=== PATIENT | male | born 1960 | race Caucasian/White ===

== ENCOUNTER 2016-10-11 14:00 | Inpatient (IN) | payer MEDICARE, MEDICAID ==
[~2016-10-11] VITALS: Ht 180.3 cm; Wt 95.7 kg
--- NOTE | ~2016-10-11 | CON ---
[place], [place] REPORT OF CONSULTATION NAME: JUAN PABLO VINES SR [facility] #: [id number] UNIT #: [id number] ROOM: 401 DOCTOR: DB DURÁN MD BIRTHDATE: [birth year] DOS: 10/12/2016 REASON FOR CONSULTATION: Assess the patient for shortness of breath. HISTORY OF PRESENT ILLNESS: This is a 56-year-old white male who has been known with past history of bronchial asthma and treated ____ for this patient. The patient stated he has been noted chronic shortness of breath for about 18 months. The symptoms were described to have worsened gradually in the last 4 days requiring assessment in the hospital. The patient denies symptoms of chest pain, abdominal pain. He was also noted with uncontrolled hyperglycemia. The patient on admission as well with known history of type 2 diabetes mellitus. The patient denies any symptoms of hemoptysis. He does have very mild cough without any sputum expectoration. Denies any wheezing at this time, but noted previously wheezing. Some tightness in the chest was noted with symptoms of chest pain. REVIEW OF SYSTEMS: CONSTITUTIONAL SYMPTOMS: Fatigue and tiredness were described with symptoms of fever or chills. EYES: Denies any burning, redness, or tenderness. NECK, EARS, NOSE, THROAT SYMPTOMS: No sore throat, hoarseness, otalgia, postnasal drainage or epistaxis. CARDIOVASCULAR: Denies anginal pain, edema, or pain of the lower extremities. GASTROINTESTINAL SYSTEM: Dysphagia, nausea, vomiting, diarrhea, abdominal pain, hematemesis, melena, hematochezia. SKIN: Denies lesions or rashes. MUSCULOSKELETAL SYSTEM: Denies acute joint pain, redness, or tenderness. CENTRAL NERVOUS SYSTEM: Denies dizziness, headache, diplopia, syncopal episodes or seizures. Remaining systems were noted. The patient and were noted negative. PAST MEDICAL HISTORY: As described; 1. History of essential hypertension. 2. Anxiety disorder. 3. Major depression. The patient was noted to have recurrent, moderate. 4. History of recurrent nephrolithiasis. 5. Gastroesophageal reflux. 6. Crohn's disease. 7. Hypothyroidism. 8. Type 2 diabetes mellitus. 9. History of benign prostatic hyperplasia. The patient's urinary retention. SOCIAL HISTORY: The patient stated that he is , lives at home, noted nonsmoker lifetime. Denies any history of alcohol or any illicit drugs use. The patient stated that he is currently noted on disability secondary to bleeding in his kidneys. PAST SURGICAL HISTORY: Noted as none major. FAMILY HISTORY: The patient's father at the age of 72 years which showed complication of metastatic prostate cancer. Mother is living, 82 years old with [place], [place] REPORT OF CONSULTATION NAME: JUAN PABLO VINES SR UNIT #: [id number] ROOM: 401 DOCTOR: SULLY RODRIGUEZ MD,DB BIRTHDATE: [birth year] known history of diabetes and congestive heart failure. HOME MEDICATIONS: Which were listed in the medication reconciliation, but the nursing staff at the time of admission, the patient were noted as use of Vicodin, Abilify, Cymbalta, Synthroid, metformin, Seroquel, Flomax, and Victoza. DRUG ALLERGIES: The patient was noted as allergy: 1. IODINE. 2. PENICILLIN. PHYSICAL EXAMINATION: GENERAL: A 56-year-old male who has been currently noted to be awake and alert without any acute distress. VITAL SIGNS: Height of 5 feet 11 inches, weight of 113 pounds, BMI normal temperature. The patient 99 degree Fahrenheit, respiration 18-22, heart rate 105-73, blood pressure 135/96-103/65. Pulse oxygen saturation, the patient noted on room air 91% saturation to 98% saturation, previously noted. HEENT: Chronic obesity. Head was atraumatic. Eyes nonicterus. NECK: Supple. CARDIOVASCULAR SYSTEM: S1, S2 audible. LUNGS: The patient was noted clear of any wheezing or crackles at the present time. ABDOMEN: Soft and nontender, bowel sounds present. CENTRAL NERVOUS SYSTEM: The patient was noted without any focal deficit. Cranial nerves 2 and 12 were noted intact. LABORATORY DATA: On this patient, PT and PTT for the patient was essentially noted as normal. CBC of the patient noted as normal. CBC patient on admission on 10/11/2016. Chest x-ray, 1 view, the patient 10/11/2016 patient was noted with mild cardiomegaly; otherwise normal. Lactic acid was noted as 2.2 yesterday and this morning. CMP of the patient yesterday on admission, glucose 339. Sodium 134. Remaining CMP was normal. Ketone for this patient in the urine were noted as negative. ESR was 14. Lactic acid this morning was normal. CBC of the patient this morning was noted as normal. Chest x-ray rather one view the patient was noted without any acute pulmonary infiltration, mild cardiomegaly was present. The V/Q scan the patient that was completed yesterday, the patient noted normal. IMPRESSION: Shortness of breath at this time. Etiology remains unclear, may be related to the mild lactic acidosis noted on admission, the patient of unclear etiology for this patient. There were no signs of any pneumonia, bronchospasm for this patient, the lungs were noted completely clear at this time; however, the patient does complain of wheezing at home at times and has been also noted history of chronic shortness of breath may be related to underlying obesity of this patient as well or any occult pulmonary disease. The chest x-ray of the patient were noted completely free of any acute infiltration. The proBNP for the patient was also done for this patient on admission and that was noted essentially normal, ruling out any cardiac etiology. [place], [place] REPORT OF CONSULTATION NAME: MOHINDER MCCRAYJUAN PABLO L UNIT #: [id number] ROOM: 401 DOCTOR: DB DURÁN MD BIRTHDATE: [birth year] PLAN OF MANAGEMENT: At this time, the patient would not be considered of any additional treatment will be monitored closely. I will order a chest x-ray PA and lateral to be repeated again for this patient if any abnormality suspected. CT scan of the chest will be ordered for this patient after that. In the meantime, continue other supportive plan of therapy management and care. Usual medical management, other therapies. DB VIRK MD CM:CONSTR:REPORT OF CONSULTATION 1406 10/12/16 2218 interface
--- NOTE | ~2016-10-11 | DS ---
[place], [place] DISCHARGE SUMMARY NAME: JUAN PABLO VINES SR [facility] #: [id number] UNIT #: [id number] ROOM: 401 DOCTOR: YANE CLEMENS MD BIRTHDATE: [birth year] DOS: 10/13/2016 DISCHARGE DIAGNOSES: 1. Dyspnea on exertion from uncertain etiology, likely physical deconditioning and obesity. 2. Chronic obesity, BMI of 29.7. 3. Uncontrolled type 2 diabetes mellitus with poor compliance with diet, improved sugars during the hospital stay with no concentrated sweet diet. 4. Hypothyroidism. 5. Bilateral kidney stones with flank pains which are chronic and recurrent. 6. Benign essential hypertension with controlled blood pressures. 7. Major depression, recurrent and mild. 8. Benign prostatic hyperplasia and urinary retention, asymptomatic with Flomax. 9. Generalized anxiety disorder. 10. Crohn's disease. 11. Hiatal hernia. 12. Gastroesophageal reflux disease.. 13. Esophagitis. HOSPITAL COURSE: The patient presented to the emergency department with elevated blood sugars as high as 500 at home. In the ER, he was 339. The patient also had complaints of dyspnea on exertion and his lactic acid level elevated at 2.2. The patient was admitted for treatment for severe hyperglycemia. The patient's blood sugars improved below 200 with no concentrated sweet diet. The patient apparently noncompliant with his diet. Same treatment was continued and he was covered with regular insulin sliding scale with sugar checks every 4 hours. Since sugars are now ranging between 100-200, he is being discharged to home to follow up at my office with me in 2 days. Significant dyspnea on slightest exertion with no significant abnormality on chest x-ray and VQ scan did not show any signs of pulmonary embolism. The patient was also seen by lung specialist, Dr. Smith and has been cleared for discharge to home today and I will see him back in the office in a couple of days. Dyspnea on exertion and obesity. The patient recommended low calorie, low fat, low sugar diet for weight loss and regular exercise. The patient is suffering from physical deconditioning. History of bilateral kidney stones which are asymptomatic at this time. The patient does suffer from recurrent flank pains. Major depression, recurrent, mild, controlled with Cymbalta. Crohn's disease, asymptomatic at this time. Hypothyroidism, treated with thyroid supplements, the patient on Synthroid, which was continued. [place], [place] DISCHARGE SUMMARY NAME: JUAN PABLO VINES SR [facility] #: [id number] UNIT #: [id number] ROOM: 401 DOCTOR: YANE CLEMENS MD BIRTHDATE: [birth year] BPH and urinary retention controlled and treated, patient takes Flomax. Benign essential hypertension with controlled blood pressures with treatment. LABORATORY DATA: Blood cultures were negative. V/Q scan was negative. CBC was normal. DISCHARGE MANAGEMENT: Victoza 0.6 mg daily, Abilify 10 mg a day, metformin 1000 mg b.i.d., levothyroxine 75 mcg daily, Seroquel 400 mg daily, Cymbalta 20 mg a day, Flomax 0.4 mg a day. YANE CLEMENS MD CM:CARROL [id number] YANE CLEMENS MD 10/13/16 4901 interface
--- NOTE | ~2016-10-11 | PR ---
[place], [place] PROGRESS NOTE NAME: JUAN PABLO VINES SR [facility] #: [id number] UNIT #: [id number] ROOM: 401 DOCTOR: SULLY RODRIGUEZ MD,DB BIRTHDATE: [birth year] DOS: 10/13/2016 PULMONARY FOLLOWUP SUBJECTIVE: He has been denying any symptoms of shortness of breath at this time. Denies symptoms of coughing, wheezing or chest pain. Blood glucose, the patient has been noted with improvement in the blood glucose gradually. Current blood sugar are noted less than 200. OBJECTIVE: VITAL SIGNS: Shows blood pressure 114/85, respiration 18, heart rate 82, normal temperature. Pulse ox saturation noted normal on room air as 94% saturation. HEENT: Examination shows no acute change. NECK: Supple. CARDIOVASCULAR: S1, S2 audible. LUNGS: The patient was noted without any wheezing or crackles. The lungs are noted clear. ABDOMEN: Soft, nontender. IMPRESSION: 1. Shortness of breath, etiology cannot be completely determined for this patient. The patient has been noted with improvement in the respiratory status at the present time. 2. The patient with chronic obesity. 3. Uncontrolled diabetes mellitus, which is current noted well controlled. PLAN OF TREATMENT: No changes from the pulmonary standpoint. The patient could be discharged home whenever it is necessary. Outpatient assessment recommended for the patient for further assessment of the etiology of shortness of breath. DB VIRK MD CM:PNJASON [id number] DB RODRIGUEZ MD 10/13/16 1028 interface
--- NOTE | ~2016-10-11 | PR ---
[place], [place] PROGRESS NOTE NAME: JUAN PABLO VINES SR UNIT #: [id number] ROOM: 401 DOCTOR: YANE CLEMENS MD BIRTHDATE: [birth year] DOS: 10/12/2016 SUBJECTIVE: The patient is feeling better. OBJECTIVE: VITAL SIGNS: Blood pressure 100/62, heart rate of 86 beats per minute, breathing 18 times per minute, temperature 98 degrees Fahrenheit. GENERAL APPEARANCE: The patient is alert and oriented x 3, in no visible distress with generalized weakness. HEENT AND NECK: Extraocular movements are intact. Sclerae are anicteric. Oral mucosa is moist and clean. No obvious facial weakness. Neck is supple without any lymphadenopathy. No thyromegaly. No JVD. No carotid arterial bruits. LUNGS: Clear to auscultation. No wheezing. No rhonchi. CARDIOVASCULAR SYSTEM: Heart rate is regular in rate and rhythm. S1 and S2 normally audible. No significant murmur or any other abnormal cardiac sounds. ABDOMEN: Soft, nontender. No obvious organomegaly. Bowel sounds are present. No obvious herniation. EXTREMITIES: Without significant cyanosis or edema. Warm to touch. CENTRAL NERVOUS SYSTEM: Alert and oriented x 3. Cranial nerves II-XII are intact. Speech is normal. The patient is able to move all extremities. Normal muscle strength. Deep tendon reflexes are equal on both sides. Plantars were downgoing. IMPRESSION: 1. The patient with dyspnea on exertion with a normal V/Q scan for pulmonary embolism. The patient has been seen by Dr. Smith, the motion graphics designer. 2. Type 2 diabetes mellitus, uncontrolled with blood sugars improved, now ranging between 130 to 152. The patient will be given dietary education dietary has been consulted. 3. Hypothyroidism, treated with levothyroxine. 4. History of bilateral kidney stones with flank pains which are chronic, presently, asymptomatic. 5. Benign essential hypertension with controlled blood pressures. 6. Major depression, mild, controlled with Cymbalta. 7. Benign prostatic hypertrophy and urinary retention controlled and treated with Flomax. [place], [place] PROGRESS NOTE NAME: JUAN PABLO VIENS SR UNIT #: [id number] ROOM: 401 DOCTOR: YANE CLEMENS MD BIRTHDATE: [birth year] YANE CLEMENS MD CM:AMY [id number] [id number] YANE CLEMENS MD 10/12/16 1526 interface
--- NOTE | ~2016-10-11 | WRIGHTHP ---
[place], [place] PATIENT HISTORY AND PHYSICAL EXAM NAME: JUAN PABLO VINES SR [facility] #: [id number] UNIT #: [id number] ROOM: 401 DOCTOR: YANE CLEMENS MD BIRTHDATE: [birth year] DOS: 10/11/2016 HISTORY OF PRESENT ILLNESS: The patient is a 56-year-old gentleman with a past medical history of uncontrolled type 2 diabetes mellitus. 1. Benign essential hypertension. 2. Generalized anxiety disorder. 3. Major depression, recurrent, moderate. 4. Recurrent kidney stones. 5. Hiatal hernia and GERD with esophagitis. 6. Crohn's disease. 7. Hypothyroidism. 8. Type 2 diabetes mellitus. 9. Hypothyroidism. 10. BPH and urinary retention. The patient presented to the Emergency Department with blood sugar found to be as high as 500 at home. In the ER, blood sugar was found to be 339 and he had complaints of dyspnea with exertion. It was relatively new from him. Lactic acid level was found to be 2.2. Chest x-ray was without any acute abnormality. After initial treatment in the Emergency Department, the patient was recommended for admission and further management. After admission, the patient says he is feeling quite weak. He gets short of breath with slightest exertion, which was relatively new for him, but no chest pain, no dizziness or fainting episodes. No other GI or urinary symptoms. The patient does complain of chronic flank pains from recurrent kidney stones. REVIEW OF SYSTEMS: LUNGS: Dyspnea on exertion. GASTROINTESTINAL: No nausea, vomiting, diarrhea or constipation. CARDIOVASCULAR: No palpitations or chest pains. FAMILY HISTORY: Noncontributory. SOCIAL HISTORY: Denies smoking cigarettes, alcohol and drug abuse. FAMILY HISTORY: Noncontributory. ALLERGIES: Known allergies to PENICILLIN and IODINE. HOME MEDICATIONS: Vicodin, Flomax, metformin, Cymbalta, Abilify, levothyroxine and Victoza. PHYSICAL EXAMINATION: GENERAL: Alert and oriented x 3, in no visible distress except for generalized weakness. VITAL SIGNS: Blood pressure 113/76, heart rate 73 beats per minute, breathing 20 times per minute and temperature 98 degrees Fahrenheit. IMPRESSION: The patient with progressive dyspnea on exertion. The patient is waiting to get an emergent VQ scan performed to rule out pulmonary embolism. [place], [place] PATIENT HISTORY AND PHYSICAL EXAM NAME: JUAN PABLO VINES SR [facility] #: [id number] UNIT #: [id number] ROOM: 401 DOCTOR: YANE CLEMENS MD BIRTHDATE: [birth year] am also consulting cloth dyer, Dr. Smith to look into his complaints of increasing shortness of breath. The patient's chest x-ray did not show any acute abnormality. I will give him oxygen to maintain a pulse ox of 90-96%. 1. Benign essential hypertension. We will monitor blood pressures and treat accordingly. 2. . The patient on levothyroxine, which is being continued. 3. Chronic lower back pains and lumbar spondylosis for which patient will be continued on Vicodin and he also takes a fentanyl patch. 4. Type 2 diabetes mellitus with severe hyperglycemia. We will monitor blood sugars and cover with insulin and adjust treatment as necessary. The patient is already on metformin. 5. History of bilateral kidney stones with recurrent flank pains, presently asymptomatic. YANE CLEMENS MD CM:HISPHYS:PATIENT HISTORY AND PHYSICAL EXAMINATION 53 YANE CLEMENS MD 10/11/162054 interface
[~2016-10-11 14:00] MED LIST: ABILIFY10 MG PO; ANAPROX DS550 MG PO; CYMBALTA20 MG PO; DURAGESIC50 MCG/HR TD; FLOMAX0.4 MG PO; MULTI VITAMINS1 TAB PO; NAPROSYN500 MG PO; SEROQUEL400 MG PO; SYNTHROID0.025 MG PO; VICO10300 PO; VICODIN 5/500 505 MG PO
[2016-10-11 14:03] VITALS: BP 135/96
[2016-10-11 14:37] LABS: BASO % 0.5 % (0.0-1.0); EOS # 0.1 10*3/uL (0.0-0.4); EOS % 0.9 % (1.0-4.0); HEMATOCRIT 42.9 % (42.0-52.0); HEMOGLOBIN 14.9 g/dl (14.0-18.0); LYMPH # 2.2 10*3/uL (1.3-4.4); LYMPH % 26.6 % (27.0-41.0); MEAN CELL VOLUME 90.9 fl (80.0-94.0); MEAN CORPUSCULAR HGB 31.6 pg (27.0-31.0); MEAN CORPUSCULAR HGB CONC 34.7 g/dl (33.0-37.0); MEAN PLATELET VOLUME 9.4 fl (9.6-12.3); MONO # 0.4 10*3/uL (0.1-1.0); MONO % 4.7 % (3.0-9.0); NEUT # 5.5 10*3/uL (2.3-7.9); NEUT % 66.9 % (47.0-73.0); PLATELET COUNT AUTOMATED 158 10*3/uL (130-400); RED BLOOD COUNT 4.72 10*6/uL (4.50-5.90); RED CELL DISTRI WIDTH 12.9 % (0-14.5); WHITE BLOOD COUNT 8.1 10*3/uL (4.8-10.8)
[2016-10-11 14:46] LABS: PROTHROMBIN TIME 10.5 SECONDS (9.0-12.4)
[2016-10-11 14:53] LABS: ALBUMIN 3.5 gm/dl (3.1-4.5); ALKALINE PHOSPHATASE 108 U/L (45-117); BILIRUBIN, TOTAL 0.6 mg/dl (0.2-1.0); BUN 9 mg/dl (7-24); CARBON DIOXIDE 23 mmol/L (21-32); CHLORIDE 100 mmol/L (98-107); CKMB 0.5 ng/ml (0.5-3.6); CPK 64 U/L (39-308); EST GLOM FILT AFRICAN AMERICAN > 60 ml/min; GLUCOSE 339 mg/dL (65-99); MAGNESIUM 1.8 mg/dL (1.5-2.1); POTASSIUM 4.4 mmol/L (3.5-5.1); SGOT/AST 26 IU/L (3-35); SGPT/ALT 30 U/L (12-78); SODIUM 134 mmol/L (136-145); TOTAL PROTEIN 7.3 gm/dL (6.4-8.2)
[2016-10-11 14:53] LABS: BILIRUBIN NEGATIVE (NEGATIVE); BLOOD NEGATIVE (NEGATIVE); CLARITY CLEAR (CLEAR); COLOR YELLOW (YELLOW); GLUCOSE 3+ (NEGATIVE); KETONE NEGATIVE (NEGATIVE); LEUKO ESTERASE NEGATIVE (NEGATIVE); NITRITE NEGATIVE (NEGATIVE); PH 5.5 (5.0-9.0); PROTEIN NEGATIVE (NEGATIVE); SPECIFIC GRAVITY <= 1.005 (1.005-1.030); UROBILINOGEN 0.2 E.U./dl (0.2-1.0)
[2016-10-11 14:56] LABS: TROPONIN I < 0.015 ng/ml (<0.045)
[2016-10-11 15:00] VITALS: BP 128/88
[2016-10-11 15:05] LABS: BACTERIA TRACE; RBC 0-2 rbc/hpf (0-2); URINE REFLEX COMMENT NO (NO); WBC 0-2 wbc/hpf (0-5)
[2016-10-11 16:24] VITALS: BP 130/80
[2016-10-11] MEDS ORDERED: CYMBALTA60 MG PO (16:29)
[2016-10-11] MEDS ORDERED: VICTOZA 3-PAK6 MG/ML SC (16:30)
[2016-10-11] MEDS ORDERED: KLONOPIN2 M1 PO (16:31)
[2016-10-11] MEDS ORDERED: SEPTRA DS 800 M1 TAB PO (16:31)
[2016-10-11] MEDS ORDERED: BREO ELLIPTA 11 EACH INH (16:32)
[2016-10-11 16:33] LABS: LA>2 REFLEX 2 HR DRAW NOW
[2016-10-11] MEDS ORDERED: SYNTHROID,LEVO75 MCG PO (16:33)
[2016-10-11] MEDS ORDERED: GLUCOPHAGE500 M1 PO (16:33)
[2016-10-11 16:54] VITALS: BP 113/76
[2016-10-11 16:59] LABS: LA>2 RFLX FOLLOW UP AT 2 HRS 2.2 mmol/L (0.4-2.0)
[2016-10-11] MEDS ORDERED: FLOMAX0.4 MG PO (17:14)
[2016-10-11 18:52] LABS: LA>2 REFLEX 4 HR DRAW NOW
[2016-10-11 20:00] VITALS: BP 114/69
[2016-10-12] VITALS: BP 99/61
[2016-10-12 06:51] LABS: BASO % 0.6 % (0.0-1.0); EOS # 0.1 10*3/uL (0.0-0.4); EOS % 1.6 % (1.0-4.0); HEMATOCRIT 42.7 % (42.0-52.0); HEMOGLOBIN 14.2 g/dl (14.0-18.0); IG # 0.1 10*3/uL (0.0-0.1); LYMPH # 2.6 10*3/uL (1.3-4.4); LYMPH % 38.2 % (27.0-41.0); MEAN CELL VOLUME 92.4 fl (80.0-94.0); MEAN CORPUSCULAR HGB 30.7 pg (27.0-31.0); MEAN CORPUSCULAR HGB CONC 33.3 g/dl (33.0-37.0); MEAN PLATELET VOLUME 9.8 fl (9.6-12.3); MONO # 0.5 10*3/uL (0.1-1.0); MONO % 6.7 % (3.0-9.0); NEUT # 3.6 10*3/uL (2.3-7.9); PLATELET COUNT AUTOMATED 152 10*3/uL (130-400); RED BLOOD COUNT 4.62 10*6/uL (4.50-5.90); RED CELL DISTRI WIDTH 13.1 % (0-14.5); WHITE BLOOD COUNT 6.9 10*3/uL (4.8-10.8)
[2016-10-12 08:00] VITALS: BP 100/62
[2016-10-12 12:00] VITALS: BP 103/65
[2016-10-12 16:00] VITALS: BP 102/75
[2016-10-12 20:00] VITALS: BP 120/70
[2016-10-12] MEDS ORDERED: ACETAMINOPHEN &1 TA1 PO (21:01)
[2016-10-12] MEDS ORDERED: QUETIAPINE FUM400 M1 PO (21:04)
[2016-10-12] MEDS ORDERED: COLACE100 MG PO (21:09)
[2016-10-13] VITALS: BP 113/57
[2016-10-13 08:00] VITALS: BP 114/65
[2016-10-13 12:00] VITALS: BP 108/60
== END 2016-10-13 13:58 | disposition home or self-care (01) | DRG 638 ==
LOC: ED 14:00 → EDHOLD 15:51 → 4E 15:51
PROVIDERS: Emergency Medicine; Internal Medicine
DX: E11.65 Type 2 diabetes mellitus with hyperglycemia (principal); E87.2 Acidosis; K50.90 Crohn's disease, unspecified, without complications; F33.0 Major depressive disorder, recurrent, mild; N20.0 Calculus of kidney; R06.00 Dyspnea, unspecified; I10 Essential (primary) hypertension; K44.9 Diaphragmatic hernia without obstruction or gangrene; K21.0 Gastro-esophageal reflux disease with esophagitis; F41.1 Generalized anxiety disorder; M47.896 Other spondylosis, lumbar region; E03.9 Hypothyroidism, unspecified; N40.1 Benign prostatic hyperplasia with lower urinary tract symptoms; E66.9 Obesity, unspecified; R33.8 Other retention of urine; J45.909 Unspecified asthma, uncomplicated; Z87.442 Personal history of urinary calculi; Z88.0 Allergy status to penicillin; Z88.8 Allergy status to other drugs, medicaments and biological substances; Z80.42 Family history of malignant neoplasm of prostate; Z83.3 Family history of diabetes mellitus; Z82.49 Family history of ischemic heart disease and other diseases of the circulatory system; Z68.29 Body mass index [BMI] 29.0-29.9, adult; Z79.4 Long term (current) use of insulin

== ENCOUNTER 2017-03-06 21:41 | Inpatient (IN) | payer MEDICARE, MEDICAID ==
[~2017-03-06] VITALS: Ht 180.3 cm; Wt 97.2 kg
--- NOTE | ~2017-03-06 | EKG ---
[place], [place] ELECTROCARDIOGRAM REPORT NAME: JUAN PABLO VINES SR UNIT #: [id number] ROOM: 416 DOCTOR: JIMMY ESTRADA MD BIRTHDATE: [birth year] DOS: 03/07/2017 TIME: 0048 hours. IMPRESSION: 1. Sinus rhythm. 2. Poor R-wave progression. 3. Cannot rule old inferior infarction. 4. Normal QT interval. JIMMY ESTRADA MD CM:EKGRPT:ELECTROCARDIOGRAM REPORT 1033 1057 JIMMY ESTRADA MD
--- NOTE | ~2017-03-06 | EKG ---
[place], [place] ELECTROCARDIOGRAM REPORT NAME: JUAN PABLO VINES SR UNIT #: [id number] ROOM: 416 DOCTOR: JIMMY ESTRADA MD BIRTHDATE: [birth year] DOS: 03/06/2017 TIME: 2158 hours. IMPRESSION: 1. Normal sinus rhythm. 2. Poor R-wave progression. 3. Nonspecific ST wave changes. 4. Normal QT interval. JIMMY ESTRADA MD CM:EKGRPT:ELECTROCARDIOGRAM REPORT 1033 1100 JIMMY ESTRADA MD
--- NOTE | ~2017-03-06 | CON ---
[place], [place] REPORT OF CONSULTATION NAME: JUAN PABLO VINES SR UNIT #: [id number] ROOM: 416 DOCTOR: JIMMY ESTRADA MD BIRTHDATE: [birth year] DOS: 03/07/2017 REASON FOR CONSULTATION: Chest pain. HISTORY OF PRESENT ILLNESS: The patient is a 56-year-old gentleman with history of hypertension, diabetes, came to the Emergency Room with chest pain. He has rather vague symptoms, but complaining of intermittent chest pains, both at rest and also on exertion. This pain is on left side of the chest with some radiation to the left arm and one time if felt like a tightness area, another time he described as some vague dull pain. The pain lasted for a few minutes and relieves without any intervention. No associated nausea, diaphoresis or dizziness. He had no previous history of coronary artery disease. He denies any fever or chills. No nausea, vomiting, diarrhea. No palpitations. No PND, no orthopnea, no hematuria or dysuria. REVIEW OF SYSTEMS: Review of the 8 systems negative except as mentioned above. PAST MEDICAL HISTORY: 1. Hypertension. 2. Diabetes type 2. 3. Crohn's disease. 4. Hypothyroidism. 5. Major depression. 6. Non-morbid obesity. PAST SURGICAL HISTORY: Noncontributory. FAMILY HISTORY: Noncontributory. ALLERGIES: THE PATIENT IS ALLERGIC TO PENICILLIN AND IODINE. HOME MEDICATIONS: Reviewed. PHYSICAL EXAMINATION: VITAL SIGNS: Blood pressure 110/60, pulse 97, respirations 18. GENERAL: Alert, comfortable, in no acute distress. NECK: Supple, no distended neck veins, no carotid bruit. CHEST: Symmetrical, nontender. LUNGS: Clear to auscultation bilaterally. HEART: Regular rhythm, no S3, no palpable thrills. ABDOMEN: Obese, nontender. Bowel sounds normal. EXTREMITIES: Showed no edema. Distal pulses are palpable. SKIN: Warm and dry. No cyanosis, no clubbing. NEUROLOGIC: The patient is alert, oriented. No focal neurologic deficit. RECTAL: Deferred. Medications, allergies, EKGs reviewed. EKG showed normal sinus rhythm. His cardiac troponins are negative. IMPRESSION: [place], [place] REPORT OF CONSULTATION NAME: JUAN PABLO VINES SR [place] UNIT #: [id number] ROOM: [facility] DOCTOR: SEAN SANCHEZ,JIMMY BIRTHDATE: [birth year] 1. Chest pain, myocardial infarction ruled out with no further chest pain. EKG showed no ischemic changes. 2. Hypertension, controlled. 3. Diabetes type 2. 4. Dyslipidemia. 5. Non-morbid obesity. RECOMMENDATIONS: He denies any further chest pain. EKG, cardiac enzymes unremarkable, he can be discharged home today and we will schedule for outpatient stress test. I would recommend management of his lipids with statin therapy. Risk factor modification for diet, exercise, weight loss discussed. Outpatient stress test in the next 1-2 weeks. The patient advised to come back to the Emergency Room if he develops recurrent chest pains. JIMMY ESTRADA MD CM:CONSTR:REPORT OF CONSULTATION 1551 03/07/17 2219 interface
--- NOTE | ~2017-03-06 | EKG ---
[place], [place] ELECTROCARDIOGRAM REPORT NAME: JUAN PABLO VINES SR UNIT #: [id number] ROOM: 416 DOCTOR: SEAN SANCHEZ,JIMMY BIRTHDATE: [birth year] DOS: 03/07/2017 TIME: 5:24 a.m. IMPRESSION: 1. Sinus rhythm. 2. Cannot rule out old inferior infarction. 3. Nonspecific ST-T changes. JIMMY ESTRADA MD CM:EKGRPT:ELECTROCARDIOGRAM REPORT 1034 1058 JIMMY ESTRADA MD
--- NOTE | ~2017-03-06 | WRIGHTHP ---
[place], [place] PATIENT HISTORY AND PHYSICAL EXAM NAME: JUAN PABLO VINES SR [facility] #: [id number] UNIT #: [id number] ROOM: 416 DOCTOR: YANE CLEMENS MD BIRTHDATE: [birth year] DOS: 03/06/2017 HISTORY OF PRESENT ILLNESS: A 56-year-old gentleman presented to the Emergency Department with complaints of recurrent left-sided chest pain radiating into the left arm. The patient was admitted and ruled out for myocardial infarction with serial cardiac enzymes and was seen by supervisor refining, who has cleared him for discharge and recommended an outpatient cardiac stress test. The patient is symptom free now. No shortness of breath. No other GI or urinary symptoms. REVIEW OF SYSTEMS: LUNGS: No increasing shortness of breath or wheezing. GASTROINTESTINAL: No nausea, vomiting, diarrhea or constipation. CARDIOVASCULAR: Left-sided chest pains, which have resolved. FAMILY HISTORY: Noncontributory. SOCIAL HISTORY: . Denies smoking cigarettes, alcohol and drug abuse. HOME MEDICATIONS: The patient takes metformin, Colace, Cymbalta, levothyroxine, Vicodin, Seroquel, Flomax, Victoza. ALLERGIES: Known allergies to IODINE AND PENICILLIN. PHYSICAL EXAMINATION: GENERAL: Alert, oriented x 3, in no visible distress. VITAL SIGNS: Blood pressure 115/72, heart rate of 97 beats per minute, breathing normally, afebrile. HEENT AND NECK: Extraocular movements are intact. Sclerae are anicteric. Oral mucosa is moist and clean. No obvious facial weakness. Neck is supple without any lymphadenopathy. No thyromegaly. No JVD. No carotid arterial bruits. LUNGS: Clear to auscultation. No wheezing. No rhonchi. CARDIOVASCULAR SYSTEM: Heart rate is regular in rate and rhythm. S1 and S2 normally audible. No significant murmur or any other abnormal cardiac sounds. ABDOMEN: Soft, nontender. No obvious organomegaly. Bowel sounds are present. No obvious herniation. EXTREMITIES: Without significant cyanosis or edema. Warm to touch. CENTRAL NERVOUS SYSTEM: Alert and oriented x 3. Cranial nerves II-XII are intact. Speech is normal. The patient is able to move all extremities. Normal muscle strength. Deep tendon reflexes are equal on both sides. Plantars were downgoing. LABORATORY DATA: Negative cardiac enzymes, troponin I levels x 3. No acute findings on CT of the head. Chest x-ray without any active lung disease. Normal serum electrolytes. Hemoglobin 13.9. Normal CBC. IMPRESSION: 1. The patient with chest pains from uncertain etiology. All cardiac enzymes negative. The patient was seen by supervisor refining and recommended discharge to home with outpatient cardiac stress testing, which has been scheduled for this Thursday. The patient is asymptomatic now. [place], [place] PATIENT HISTORY AND PHYSICAL EXAM NAME: JUAN PABLO VINES SR UNIT #: [id number] ROOM: [facility] DOCTOR: SARATH SANCHEZ,YANE Sanderson BIRTHDATE: [birth year] 2. Uncontrolled type 2 diabetes mellitus with noncompliance with diet. Blood sugars were monitored and treated. Sugar was 307. 3. Hypothyroidism, treated with thyroid supplements. 4. Benign essential hypertension, treated and controlled. 5. History of Crohn's disease, asymptomatic. 6. Gastroesophageal reflux disease and esophagitis without heartburns. 7. Benign prostatic hypertrophy and urinary retention, asymptomatic with Flomax. 8. Hypothyroidism. The patient remains on thyroid supplements. YANE CLEMENS MD CM:HISPHYS:PATIENT HISTORY AND PHYSICAL EXAMINATION 21 13 YANE CLEMENS MD 03/07/171914 interface
[~2017-03-06 21:41] MED LIST changes: +ACETAMINOPHEN &1 TA1 PO; +BREO ELLIPTA 11 EACH INH; +COLACE100 MG PO; +CYMBALTA60 MG PO; +GLUCOPHAGE500 M1 PO; +KLONOPIN2 M1 PO; +QUETIAPINE FUM400 M1 PO; +SEPTRA DS 800 M1 TAB PO; +SYNTHROID,LEVO75 MCG PO; +VICTOZA 3-PAK6 MG/ML SC
[2017-03-06 22:00] VITALS: BP 98/71
[2017-03-06 22:08] LABS: BASO # 0.1 10*3/uL (0.0-0.1); BASO % 0.8 % (0.0-1.0); EOS # 0.3 10*3/uL (0.0-0.4); EOS % 3.6 % (1.0-4.0); HEMATOCRIT 40.6 % (42.0-52.0); HEMOGLOBIN 13.9 g/dl (14.0-18.0); LYMPH # 3.2 10*3/uL (1.3-4.4); MEAN CELL VOLUME 91.4 fl (80.0-94.0); MEAN CORPUSCULAR HGB 31.3 pg (27.0-31.0); MEAN CORPUSCULAR HGB CONC 34.2 g/dl (33.0-37.0); MEAN PLATELET VOLUME 9.9 fl (9.6-12.3); MONO # 0.5 10*3/uL (0.1-1.0); MONO % 6.6 % (3.0-9.0); NEUT # 3.5 10*3/uL (2.3-7.9); NEUT % 46.5 % (47.0-73.0); PLATELET COUNT AUTOMATED 163 10*3/uL (130-400); RED BLOOD COUNT 4.44 10*6/uL (4.50-5.90); RED CELL DISTRI WIDTH 13.2 % (0-14.5); WHITE BLOOD COUNT 7.6 10*3/uL (4.8-10.8)
[2017-03-06 22:16] LABS: ACT PARTIAL THROMBO TIME 26.4 SECONDS (20.8-31.5)
[2017-03-06 22:26] LABS: ALBUMIN 3.3 gm/dl (3.1-4.5); ALKALINE PHOSPHATASE 102 U/L (45-117); BUN 7 mg/dl (7-24); CHLORIDE 104 mmol/L (98-107); CREATININE 1.19 mg/dL (0.70-1.30); POTASSIUM 4.1 mmol/L (3.5-5.1); SGOT/AST 21 IU/L (3-35); SGPT/ALT 28 U/L (12-78); SODIUM 139 mmol/L (136-145); TOTAL PROTEIN 7.2 gm/dL (6.4-8.2); TROPONIN I < 0.015 ng/ml (<0.045)
[2017-03-06 22:45] VITALS: BP 100/58
--- NOTE | 2017-03-06 23:43 | NUR ---
PATIENT KNOWS MEDS VERBALLY, QUESTIONABLE TO DOSAGES
--- NOTE | 2017-03-06 23:49 | NUR ---
PATIENT STATES HE HAS NO OPEN WOUNDS. PT HAS RASH BOTH LOWER LEGS AND ANKLES
[2017-03-06 23:51] VITALS: BP 128/84
[2017-03-07 01:14] VITALS: BP 118/60
[2017-03-07 01:20] VITALS: BP 122/76
--- NOTE | 2017-03-07 01:20 | NUR ---
A 56YR OLD MALE, admitted to 4E, under the services of Dr. SARATH SANCHEZ,YANE Sanderson with a diagnosis of CHEST PAIN. Chief complaint is CHEST PAIN AND NUMBNESS TO LEFT LOWER LEG AND LEFT UPPER EXTREMITY. Patient arrived via stretcher from ER. Monitor applied. Initial assessment completed. Vital signs taken and recorded. DR. SARATH SANCHEZ,YANE Sanderson notified of admission to the unit. Orders received. See assessment for past medical history, medications and allergies. Patient and/or family oriented to unit 4E. visitation policy reviewed. Clothing/patient valuable form completed. PATY NUNEZ
--- NOTE | 2017-03-07 01:30 | NUR ---
Medication reconciliation updated and verified with patient who knew his home medication and dosages.
--- NOTE | 2017-03-07 06:30 | NUR ---
Called Dr. Velasquez's answering service regarding consult. They said Dr. Boucher was international bank manager and they would send the page through to him.
--- NOTE | 2017-03-07 07:45 | NUR ---
PT STATES BACK PAIN 09/22, SCHEDULED NORCO GIVEN. PT TAKES 4 TIMES A DAY BUT NOT AT THE SCHEDULED TIMES WE HAVE FOR PHARMACY. PT IS AWARE THAT HE HAS TAKEN 2 TIMES ALREADY TODAY AND CAN ONLY TAKE IT 2 MORE TIMES PER ORDER. WILL MONITOR FOR EFFECTIVENESS. ASSESSMENT COMPLETE. PT STATES NUMBNESS IN LEFT ARM AND BILATERAL LEGS. DENY CHEST PAIN AT THIS TIME.
[2017-03-07 08:00] VITALS: BP 114/74
--- NOTE | 2017-03-07 08:26 | NUR ---
Shift chart check completed.
--- NOTE | 2017-03-07 09:00 | NUR ---
PT STATES NORCO SOMEWHAT EFFECTIVE FOR PAIN. NO FURTHUR NEEDS AT THIS TIME.
[2017-03-07 12:00] VITALS: BP 110/66
--- NOTE | 2017-03-07 12:45 | NUR ---
IV IN LEFT HAD CAME OUT, PLACED NEW IV IN RIGHT FA #20, GOOD BLOOD RETURN, FLUSHES EASLIY, PATIENT TOLERATED WELL
--- NOTE | 2017-03-07 15:05 | NUR ---
DISCUSS PATIENT WITH DR. CLEMENS. MADE AWARE THAT PER CARDIOLOGY HE CAN BE D/C HOME AND FOLLOW UP WITH OUTPATIET STRESS TEST/ CARDIOLOGY NEEDED.
[2017-03-07 16:00] VITALS: BP 115/72
--- NOTE | 2017-03-07 18:00 | NUR ---
Discharge instructions reviewed with patient. Patient receptive and verbalizes understanding. Follow-up care arranged and patient understands to come back for stress test on wedneday and to follow up with dr. escudero. follow up with cardiology as needed. Written instructions given to patient/family. iv removed, dressing applied. pt deny wheelchair for discharge ALFREDITO FORD
== END 2017-03-07 18:40 | disposition home or self-care (01) | DRG 313 ==
LOC: ED 21:41 → EDHOLD 23:16 → 4E 23:42
PROVIDERS: Student in an Organized Health Care Education/Training Program; ADMIT Internal Medicine
DX: R07.9 Chest pain, unspecified (principal); E11.65 Type 2 diabetes mellitus with hyperglycemia; K50.90 Crohn's disease, unspecified, without complications; E03.9 Hypothyroidism, unspecified; I10 Essential (primary) hypertension; F32.9 Major depressive disorder, single episode, unspecified; E66.9 Obesity, unspecified; Z68.29 Body mass index [BMI] 29.0-29.9, adult; Z79.899 Other long term (current) drug therapy; Z91.041 Radiographic dye allergy status; Z91.19 Patient's noncompliance with other medical treatment and regimen; Z88.0 Allergy status to penicillin; Z83.3 Family history of diabetes mellitus; Z82.3 Family history of stroke; Z88.6 Allergy status to analgesic agent; R29.700 NIHSS score 0; K21.0 Gastro-esophageal reflux disease with esophagitis; N40.1 Benign prostatic hyperplasia with lower urinary tract symptoms; R33.8 Other retention of urine

== ENCOUNTER 2017-06-03 04:29 | Emergency (ER) | payer MEDICARE, MEDICAID ==
[~2017-06-03] VITALS: Ht 180.3 cm; Wt 94.8 kg
[2017-06-03 05:20] LABS: BASO % 0.5 % (0.0-1.0); EOS # 0.1 10*3/uL (0.0-0.4); EOS % 0.7 % (1.0-4.0); HEMATOCRIT 37.8 % (42.0-52.0); HEMOGLOBIN 12.6 g/dl (14.0-18.0); LYMPH # 1.2 10*3/uL (1.3-4.4); LYMPH % 16.4 % (27.0-41.0); MEAN CELL VOLUME 91.7 fl (80.0-94.0); MEAN CORPUSCULAR HGB 30.6 pg (27.0-31.0); MEAN CORPUSCULAR HGB CONC 33.3 g/dl (33.0-37.0); MEAN PLATELET VOLUME 9.7 fl (9.6-12.3); MONO # 0.4 10*3/uL (0.1-1.0); MONO % 5.6 % (3.0-9.0); NEUT # 5.6 10*3/uL (2.3-7.9); NEUT % 76.3 % (47.0-73.0); PLATELET COUNT AUTOMATED 134 10*3/uL (130-400); RED BLOOD COUNT 4.12 10*6/uL (4.50-5.90); WHITE BLOOD COUNT 7.3 10*3/uL (4.8-10.8)
[2017-06-03 05:39] LABS: ALBUMIN 3.3 gm/dl (3.1-4.5); ALKALINE PHOSPHATASE 98 U/L (45-117); BUN 6 mg/dl (7-24); CHLORIDE 105 mmol/L (98-107); CREATININE 0.89 mg/dL (0.70-1.30); LIPASE 99 U/L (73-393); POTASSIUM 3.9 mmol/L (3.5-5.1); SGOT/AST 19 IU/L (3-35); SGPT/ALT 28 U/L (12-78); SODIUM 139 mmol/L (136-145); TOTAL PROTEIN 6.5 gm/dL (6.4-8.2)
[2017-06-03] MEDS ORDERED: REGLAN5 MG PO (06:39)
[2017-06-03] MEDS ORDERED: PROTONIX40 MG PO (06:39)
[2017-06-03] MEDS ORDERED: NORCO 5-325 TA1 EACH PO (06:40)
== END 2017-06-03 07:11 | disposition home or self-care (01) ==
LOC: ED 04:29
PROVIDERS: Emergency Medicine Emergency Medical Services
DX: K80.50 Calculus of bile duct without cholangitis or cholecystitis without obstruction (principal); K80.20 Calculus of gallbladder without cholecystitis without obstruction; K21.9 Gastro-esophageal reflux disease without esophagitis; E11.9 Type 2 diabetes mellitus without complications; Z79.899 Other long term (current) drug therapy; Z88.0 Allergy status to penicillin

== ENCOUNTER → 2017-06-04 | Outpatient (CLI) | payer MEDICARE, MEDICAID ==
[~2017-06-04] MED LIST changes: +NORCO 5-325 TA1 EACH PO; +PROTONIX40 MG PO; +REGLAN5 MG PO
== END | disposition home or self-care (01) ==
LOC: MAMMO 08:20
DX: N63.20 Unspecified lump in the left breast, unspecified quadrant (principal); R92.8 Other abnormal and inconclusive findings on diagnostic imaging of breast

== ENCOUNTER 2017-06-23 04:09 | Inpatient (IN) | payer MEDICARE, MEDICAID ==
[2017-06-22 09:16] VITALS: BP 132/85
[2017-06-22 10:37] LABS: BASO % 0.6 % (0.0-1.0); EOS # 0.1 10*3/uL (0.0-0.4); EOS % 1.6 % (1.0-4.0); HEMATOCRIT 41.1 % (42.0-52.0); HEMOGLOBIN 13.6 g/dl (14.0-18.0); LYMPH # 1.6 10*3/uL (1.3-4.4); LYMPH % 23.3 % (27.0-41.0); MEAN CELL VOLUME 90.9 fl (80.0-94.0); MEAN CORPUSCULAR HGB 30.1 pg (27.0-31.0); MEAN CORPUSCULAR HGB CONC 33.1 g/dl (33.0-37.0); MEAN PLATELET VOLUME 9.9 fl (9.6-12.3); MONO # 0.5 10*3/uL (0.1-1.0); MONO % 6.5 % (3.0-9.0); NEUT # 4.7 10*3/uL (2.3-7.9); NEUT % 67.7 % (47.0-73.0); PLATELET COUNT AUTOMATED 164 10*3/uL (130-400); RED BLOOD COUNT 4.52 10*6/uL (4.50-5.90); RED CELL DISTRI WIDTH 13.5 % (0-14.5); WHITE BLOOD COUNT 6.9 10*3/uL (4.8-10.8)
[2017-06-22 11:04] LABS: ALBUMIN 3.5 gm/dl (3.1-4.5); BUN 7 mg/dl (7-24); CHLORIDE 103 mmol/L (98-107); CREATININE 1.06 mg/dL (0.70-1.30); POTASSIUM 3.7 mmol/L (3.5-5.1); SGOT/AST 19 IU/L (3-35); SGPT/ALT 30 U/L (12-78); SODIUM 137 mmol/L (136-145)
[2017-06-22 11:07] LABS: ALKALINE PHOSPHATASE 114 U/L (45-117); BILIRUBIN, DIRECT 0.1 mg/dL (0.0-0.2)
[~2017-06-23] VITALS: Ht 180.3 cm; Wt 97.1 kg
[2017-06-23] VITALS (11 sets, daily range): BP systolic 104–123; BP diastolic 61–82
--- NOTE | ~2017-06-23 | PR ---
[place], [place] PROGRESS NOTE NAME: JUAN PABLO VINES [facility] #: [id number] UNIT #: [id number] ROOM: 505 DOCTOR: YANE CLEMENS MD BIRTHDATE: [birth year] DOS: 06/24/2017 SUBJECTIVE: The patient is feeling much better. He is tolerating diet and waiting to be seen by Dr. Loya today. The patient says he has moved his bowels. OBJECTIVE: VITAL SIGNS: Blood pressure 102/66, heart rate 88 beats per minute, breathing 18 times per minute, temperature 98 degrees Fahrenheit. HEENT AND NECK: Exam within normal limits. CARDIOVASCULAR SYSTEM: Heart rate is regular in rate and rhythm. S1 and S2 normally audible. LUNGS: Clear to auscultation. ABDOMEN: Soft, nontender. No obvious organomegaly. Bowel sounds are present. EXTREMITIES: Without significant cyanosis or edema. IMPRESSION: 1. Uncontrolled type 2 diabetes mellitus with elevated blood sugars. The patient's insulin has been cut back because of his decreased appetite after cholecystectomy and surgery. 2. The patient is status post cholecystectomy and an infected gallbladder, presently remains on postop IV ciprofloxacin by Dr. Loya. 3. Major depression, recurrent, mild, treated and controlled. The patient remains on Seroquel. 4. Severe generalized anxiety disorder. The patient being encouraged to come down on his Klonopin given to him by his midlevel provider at a psychiatrist. He was receiving 6 mg of Klonopin a day and has been reduced to 4 mg a day and this medication slowly needs to be tapered down as he also takes Vicodin for pain control and combination of this medication is not recommended. 5. Pain at the site of cholecystectomy and also chronic pains, controlled with p.r.n. Vicodin and IV Demerol as needed postoperatively. YANE CLEMENS MD CM:PNJASON YANE CLEMENS MD 06/24/17 1048 interface
--- NOTE | ~2017-06-23 | CON ---
[place], [place] REPORT OF CONSULTATION NAME: JUAN PABLO VINES [facility] #: [id number] UNIT #: [id number] ROOM: 505 DOCTOR: YANE CLEMENS MD BIRTHDATE: [birth year] DOS: 06/23/2017 ATTENDING PHYSICIAN: Dr. Luis Loya. HISTORY OF PRESENT ILLNESS: The patient is a 56-year-old gentleman with a past medical history of: 1. Type 2 diabetes mellitus. 2. The patient is status post cholecystectomy. 3. History of uncontrolled type 2 diabetes mellitus with poor compliance with treatment. 4. Bilateral kidney stones with flank pains. 5. Benign essential hypertension. 6. Major depression, recurrent, mild. 7. Generalized anxiety disorder, follows up with psychiatry. 8. Benign prostatic hypertrophy. 9. Crohn's disease. 10. Hiatal hernia and GERD with esophagitis. The patient was admitted to [facility] after cholecystectomy. Because his gallbladder was infected, Dr. Loya, the surgeon, wanted to treat him with IV antibiotics. The patient is feeling better and tolerating diet. No chest pain, no shortness of breath, no GI or urinary symptoms, just pain at the site of surgery in the right upper quadrant. REVIEW OF SYSTEMS: LUNGS: No increasing shortness of breath. GASTROINTESTINAL: No nausea, vomiting, diarrhea or constipation. CARDIOVASCULAR: No chest pain or palpitations. FAMILY HISTORY: Noncontributory. SOCIAL HISTORY: , lives at home. Denies smoking cigarettes, alcohol and drug abuse. MEDICATIONS: Victoza, Levemir, insulin, metformin, Protonix, Seroquel, Cymbalta, clonazepam, Vicodin, Vicodin, metoclopramide, fentanyl patch. PHYSICAL EXAMINATION: GENERAL: Alert and oriented times 3, in no visible distress. HEENT AND NECK: Extraocular movements are intact. Sclerae are anicteric. Oral mucosa is moist and clean. No obvious facial weakness. Neck is supple without any lymphadenopathy. No thyromegaly. No JVD. No carotid arterial bruits. LUNGS: Clear to auscultation. No wheezing. No rhonchi. CARDIOVASCULAR SYSTEM: Heart rate is regular in rate and rhythm. S1 and S2 normally audible. No significant murmur or any other abnormal cardiac sounds. ABDOMEN: Some tenderness at the site of surgery. Bowel sounds are present. EXTREMITIES: Without significant cyanosis or edema. Warm to touch. CENTRAL NERVOUS SYSTEM: Alert and oriented x 3. Cranial nerves II-XII are intact. Speech is normal. The patient is able to move all extremities. Normal muscle strength. Deep tendon reflexes are equal on both sides. Plantars were [place], [place] REPORT OF CONSULTATION NAME: JUAN PABLO VINES [facility] #: [id number] UNIT #: [id number] ROOM: [facility] DOCTOR: YANE CLEMENS MD BIRTHDATE: [birth year] downgoing. LABORATORY DATA: Normal chest x-ray. Normal serum electrolytes, bilirubin, liver enzymes. Blood sugar elevated at 317. Normal CBC except for hemoglobin 13.6, normal platelets. IMPRESSION: 1. The patient is status post cholecystectomy for acute cholecystitis and infected gallbladder, has been admitted and started on ciprofloxacin by Dr. Loya, he is doing well and starting to tolerate diet. 2. Type 2 diabetes mellitus, uncontrolled with poor compliance with treatment. The patient will be kept on no concentrated diet as tolerated and I will restart his metformin. 3. Major depression, recurrent, mild treated and controlled. The patient's Seroquel has been restarted. 4. Severe generalized anxiety disorder. The patient was taking 2 mg of Klonopin 3 times a day at home, which is a very high dose, I will reduce it to b.i.d. YANE CLEMENS MD CM:CONSTR:REPORT OF CONSULTATION 1854 07/02/17 0930 interface
[~2017-06-23 04:09] MED LIST changes: +HYDROCODONE-AC1 EACH PO; +LEVEMIR100 UNIT/1 SC
[2017-06-23] MEDS ORDERED: SEROQUEL200 MG PO (18:33)
[2017-06-24] VITALS: BP 112/69
[2017-06-24 06:54] LABS: BUN 5 mg/dl (7-24); CHLORIDE 105 mmol/L (98-107); CREATININE 0.91 mg/dL (0.70-1.30); POTASSIUM 3.6 mmol/L (3.5-5.1); SODIUM 139 mmol/L (136-145)
[2017-06-24 08:00] VITALS: BP 102/66
[2017-06-24 12:00] VITALS: BP 97/53
[2017-06-24 16:00] VITALS: BP 109/76
[2017-06-24 20:00] VITALS: BP 127/80
[2017-06-25] VITALS: BP 114/72
[2017-06-25 06:50] LABS: ALBUMIN 2.7 gm/dl (3.1-4.5); BILIRUBIN, DIRECT 0.1 mg/dL (0.0-0.2)
[2017-06-25 06:53] LABS: TOTAL PROTEIN 6.1 gm/dL (6.4-8.2)
[2017-06-25 08:00] VITALS: BP 101/68
[2017-06-25 12:00] VITALS: BP 120/76
[2017-06-25] MEDS ORDERED: Lantus SC (13:25)
[2017-06-25] MEDS ORDERED: CIPROFLOXACIN500 M4 PO (13:25)
[2017-06-25] MEDS ORDERED: Humulin R SC (13:25)
[2017-06-25] MEDS ORDERED: HYDROCODONE-AC1 EAC1 PO (13:25)
== END 2017-06-25 14:36 | disposition home or self-care (01) | DRG 418 ==
LOC: SDC 04:09 → 5E 15:21
PROVIDERS: Internal Medicine
PROC: 0FT44ZZ Resection of Gallbladder, Percutaneous Endoscopic Approach (ICD-10-PCS; principal; 2017-06-23)
PROC: 0DNU4ZZ Release Omentum, Percutaneous Endoscopic Approach (ICD-10-PCS; principal; 2017-06-23)
PROC: BF131ZZ Fluoroscopy of Gallbladder and Bile Ducts using Low Osmolar Contrast (ICD-10-PCS; principal; 2017-06-23)
PROC: 0HBU3ZX Excision of Left Breast, Percutaneous Approach, Diagnostic (ICD-10-PCS; principal; 2017-06-23)
DX: K80.66 Calculus of gallbladder and bile duct with acute and chronic cholecystitis without obstruction (principal); F33.0 Major depressive disorder, recurrent, mild; E11.65 Type 2 diabetes mellitus with hyperglycemia; K50.90 Crohn's disease, unspecified, without complications; F41.1 Generalized anxiety disorder; K21.9 Gastro-esophageal reflux disease without esophagitis; G89.18 Other acute postprocedural pain; N40.0 Benign prostatic hyperplasia without lower urinary tract symptoms; N63.20 Unspecified lump in the left breast, unspecified quadrant; J44.9 Chronic obstructive pulmonary disease, unspecified; G89.29 Other chronic pain; Z83.3 Family history of diabetes mellitus; Z84.89 Family history of other specified conditions; Z79.899 Other long term (current) drug therapy; Z87.442 Personal history of urinary calculi

== ENCOUNTER 2017-07-13 15:42 | Inpatient (IN) | payer MEDICARE, MEDICAID ==
[~2017-07-13] VITALS: Ht 180.3 cm; Wt 93.9 kg
--- NOTE | ~2017-07-13 | CON ---
[place], [place] REPORT OF CONSULTATION NAME: JUAN PABLO VINES [facility] #: [id number] UNIT #: [id number] ROOM: 504 DOCTOR: GEOVANI HELMS MDSPEONKARJUN BIRTHDATE: [birth year] DOS: 07/13/2017 HISTORY OF PRESENT ILLNESS: This is a 57-year-old patient who presented with chief complaint of right upper quadrant pain, epigastric distress and atypical chest pain status post cholecystectomy 3 weeks ago, abnormal liver function test with normal lipase and with a glucose of 450+, bilirubin of 1.5. SGOT, GPT of 470 and 170+ respectively, alkaline phosphatase of 218. Ketones were negative. CT scan of the abdomen and pelvis has been done, status post cholecystectomy, trace stranding in the gallbladder fossa. Direct bilirubin, repeat 1.4. His chest x-ray, no consolidation. PAST MEDICAL HISTORY: Diabetes mellitus, cholelithiasis, obesity, gastroesophageal reflux. PAST SURGICAL HISTORY: Left total knee, cholecystectomy. SOCIAL HISTORY: Nonsmoker, nonalcohol consumer. FAMILY HISTORY: Diabetes mellitus. MEDICATIONS: List has been reviewed. ALLERGIES: PENICILLIN AND IODINE. REVIEW OF SYSTEMS: HEENT: Denies double vision, blurred vision. RESPIRATORY: Denies acute shortness of breath. CARDIOVASCULAR: Denies acute chest pain of typical character; however, left-sided chest pain with epigastric pain and right upper quadrant pain. PHYSICAL EXAMINATION: VITAL SIGNS: Stable, nontoxic. HEENT: Head normocephalic, nontraumatic. Mouth and buccal mucosa benign. NECK: Supple, no thyromegaly, no cervical lymphadenopathy. CHEST: Symmetric anatomy, equal expansion. No wheeze, no rhonchi. HEART: Normal sinus rhythm, no gallop, no murmur. ABDOMEN: Obese, large, soft. No hepato-organomegaly. Bowel sounds present. Some right upper quadrant pain. No pulsatile mass. Port of a trocar status post laparoscopic cholecystectomy was noticed. Healed. Bowel sounds present. ____: Examination otherwise. EXTREMITIES: No cyanosis, no pedal edema. NEUROLOGIC: Alert, oriented to time, place, person. IMPRESSION: Right upper quadrant pain, status post cholecystectomy, abnormal liver function test, ruling out choledocholithiasis. Retained stone, uncontrolled diabetes mellitus. Blood sugar of 450+, nonketotic. PLAN AND DISCUSSION: Other adjunctive diagnoses as outlined in the paragraph. Past medical and surgical history, they are going to repeat LFTs. Unfortunately, we cannot do MRCP. He is status post recent cholecystectomy and [place], [place] REPORT OF CONSULTATION NAME: JUAN PABLO VINES UNIT #: [id number] ROOM: [facility] DOCTOR: SCOOTER SANCHEZ,KENNETH BIRTHDATE: [birth year] if persistent LFTs and symptomatology continues, then he may need an ERCP. At the present time, glucose control. Supportive management with Protonix in progress. KENNETH HELMS MD CM:CONSTR:REPORT OF CONSULTATION 2137 07/14/17 1458 interface
--- NOTE | ~2017-07-13 | PR ---
[place], [place] PROGRESS NOTE NAME: JUAN PABLO VINES UNIT #: [id number] ROOM: 504 DOCTOR: YANE CLEMENS MD BIRTHDATE: [birth year] DOS: 07/15/2017 SUBJECTIVE: The patient is still complaining of abdominal pain at the site of surgery. OBJECTIVE: VITAL SIGNS: Blood pressure 114/76, heart rate 81 beats per minute, breathing 16 times per minute, temperature 98 degrees Fahrenheit. GENERAL APPEARANCE: The patient is alert and oriented x 3, in no visible distress. HEENT AND NECK: Exam within normal limits. CARDIOVASCULAR SYSTEM: Heart rate is regular in rate and rhythm. S1 and S2 normally audible. LUNGS: Clear to auscultation. ABDOMEN: Some tenderness at the surgical site. EXTREMITIES: Without significant cyanosis or edema. IMPRESSION: 1. The patient is without chest pains today. His cardiac stress was performed this morning by Cardiology. 2. Uncontrolled type 2 diabetes mellitus, with poor compliance with treatment. Blood sugars are being monitored and ranging between 66 to 245, better controlled. 3. Major depression, recurrent, moderate, treated and controlled with Cymbalta. 4. Gastroesophageal reflux disease and esophagitis, without heart problems with omeprazole. 5. Elevation of liver enzymes after cholecystectomy. An endoscopic retrograde cholangiopancreatography was attempted by Dr. Jimenze, but papilla could not be identified. Dr. Jimenez order endoscopic retrograde cholangiopancreatography for further evaluation of abdominal pain. Diagnosis was papillary stenosis. Ultrasound of the liver was performed. 6. For recurrent chest pains, the patient was taken for a cardiac stress test by processing technician. The patient's liver enzymes are improving, AST at 243 today, ALT 281, alkaline phosphatase 234. [place], [place] PROGRESS NOTE NAME: JUAN PABLO VINES UNIT #: [id number] ROOM: 504 DOCTOR: YANE CLEMENS MD BIRTHDATE: [birth year] YANE CLEMENS MD CM:PNTRANS 1452 01 YANE CLEMENS MD 07/17/17 0948 interface
--- NOTE | ~2017-07-13 | O ---
[place], [place] OPERATIVE NOTE NAME: JUAN PABLO VINES UNIT #: [id number] ROOM: 504 DOCTOR: KENNETH HELMS MD BIRTHDATE: [birth year] DOS: 07/15/2017 HISTORY OF PRESENT ILLNESS: The patient has presented with chief complaint of multiple issues among which has been hyperglycemia as well as abnormal LFTs, fatty metamorphosis of liver as well. Elevation of abnormal liver function tests. Lipase has been normal. It has been a concern for pericholecystic fluid and postsurgical common bile duct dilation, status post cholecystectomy in the past. PROCEDURE: Today's procedure part of investigation is attempted ERCP. PREMEDICATION: Versed and propofol. SCOPE: Olympus side-viewing duodenum scope. REPORT: After putting the patient in left lateral position and application of lubricant to the scope, the scope was introduced. Thereafter, under indirect visualization, advanced through the length of esophagus into gastric pouch into the duodenum and front of the papilla. FINDINGS: Papilla is: 1. hidden. 2. Very minute. 3. It is very stenotic and does not accept cannula and wiring. After multiple attempts, the patient was extubated, tolerated the procedure well. I did not want to impose on him precut papillotomy due to the ambiguity of anatomy. IMPRESSION: Papillary stenosis. PLAN AND DISCUSSION: I am going to organize an MRCP to assure there is no other mild obstructive pathology, otherwise I have to consider some contribution of abnormal LFTs secondary to steatosis of his liver. [place], [place] OPERATIVE NOTE NAME: JUAN PABLO VINES UNIT #: [id number] ROOM: 504 DOCTOR: KENNETH HELMS MD BIRTHDATE: [birth year] KENNETH HELMS MD CM:OPRECORD:OPERATIVE NOTE 1302 1438 KENNETH HELMS MD 07/15/17 1436 interface
--- NOTE | ~2017-07-13 | PR ---
[place], [place] PROGRESS NOTE NAME: JUAN PABLO VINES UNIT #: [id number] ROOM: 504 DOCTOR: YANE CLEMENS MD BIRTHDATE: [birth year] DOS: 07/15/2017 SUBJECTIVE: The patient is still complaining of abdominal pain at the site of surgery. OBJECTIVE: VITAL SIGNS: Blood pressure 114/76, heart rate 81 beats per minute, breathing 16 times per minute, temperature 98 degrees Fahrenheit. GENERAL APPEARANCE: The patient is alert and oriented x 3, in no visible distress. HEENT AND NECK: Exam within normal limits. CARDIOVASCULAR SYSTEM: Heart rate is regular in rate and rhythm. S1 and S2 normally audible. LUNGS: Clear to auscultation. ABDOMEN: Some tenderness at the surgical site. EXTREMITIES: Without significant cyanosis or edema. IMPRESSION: 1. The patient is without chest pains today. His cardiac stress was performed this morning by Cardiology. 2. Uncontrolled type 2 diabetes mellitus, with poor compliance with treatment. Blood sugars are being monitored and ranging between 66 to 245, better controlled. 3. Major depression, recurrent, moderate, treated and controlled with Cymbalta. 4. Gastroesophageal reflux disease and esophagitis, without heart problems with omeprazole. 5. Elevation of liver enzymes after cholecystectomy. An endoscopic retrograde cholangiopancreatography was attempted by Dr. Jimenez, but papilla could not be identified. Dr. Jimenez order endoscopic retrograde cholangiopancreatography for further evaluation of abdominal pain. Diagnosis was papillary stenosis. Ultrasound of the liver was performed. 6. For recurrent chest pains, the patient was taken for a cardiac stress test by senior climate advisor. The patient's liver enzymes are improving, AST at 243 today, ALT 281, alkaline phosphatase 234. [place], [place] PROGRESS NOTE NAME: JUAN PABLO VINES UNIT #: [id number] ROOM: 504 DOCTOR: YANE CLEMENS MD BIRTHDATE: [birth year] YANE CLEMENS MD CM:PNTRANS 1452 01 YANE CLEMENS MD 07/17/17 0949 DUNG VELOZ MIS.R
--- NOTE | ~2017-07-13 | ST ---
[place], [place] EXERCISE STRESS TEST REPORT NAME: JUAN PABLO VINES [facility] #: [id number] UNIT #: [id number] ROOM: 504 DOCTOR: CHENCHO CHRISTENSEN MD BIRTHDATE: [birth year] DOS: 07/15/2017 LEXISCAN STRESS EKG. REFERRING PHYSICIAN: Dr. Valverde. INDICATION: Chest pain. The patient underwent the standard protocol Lexiscan stress EKG. The patient's baseline EKG showed normal sinus rhythm, nonspecific ST-T wave changes. The patient's baseline heart rate is 99 with a blood pressure 122/88. The patient's peak heart rate was 120 with a blood pressure 196/68. The patient had no chest pain, no shortness of breath or EKG changes. SUMMARY OF FINDINGS: Unremarkable stress EKG. Please refer to separate report for perfusion scan results. CHENCHO CHRISTENSEN MD CM:STRESS:EXERCISE STRESS TEST REPORT 1115 1150 CHENCHO CHRISTENSEN MD
--- NOTE | ~2017-07-13 | PR ---
[place], [place] PROGRESS NOTE NAME: JUAN PABLO VINES [facility] #: [id number] UNIT #: [id number] ROOM: 504 DOCTOR: YANE CLEMENS MD BIRTHDATE: [birth year] DOS: 07/17/2017 SUBJECTIVE: The patient is feeling much better. He is status post ERCP again today. OBJECTIVE: VITAL SIGNS: Blood pressure 135/76, afebrile, heart rate of 77 beats per minute, breathing normally. IMPRESSION: 1. The patient is status post Endoscopic retrograde cholangiopancreatography and papillotomy for high grade stenosis and normal pancreatic duct. The patient ordered LFTs for tomorrow. 2. Uncontrolled type 2 diabetes mellitus, which is being monitored and treated. 3. Major depression, recurrent, moderate, treated with Cymbalta. 4. Gastroesophageal reflux disease and esophagitis, asymptomatic with omeprazole. 5. Elevated liver enzymes after cholecystectomy, status post papillotomy. 6. Recurrent chest pains evaluated by Cardiology. The patient was taken for cardiac stress test. YAEN CLEMENS MD CM:PNTRANS 31 49 YANE CLEMENS MD 07/17/172148 interface
--- NOTE | ~2017-07-13 | WRIGHTHP ---
[place], [place] PATIENT HISTORY AND PHYSICAL EXAM NAME: JUAN PABLO VINES [facility] #: [id number] UNIT #: [id number] ROOM: 504 DOCTOR: YANE CLEMENS MD BIRTHDATE: [birth year] DOS: 07/13/2017 HISTORY OF PRESENT ILLNESS: A 57-year-old gentleman presented to the Emergency Department at [facility] with severely elevated sugars of going above 600 as checked at home and some pain at the site of his cholecystectomy 3 weeks ago. The patient was also somewhat short of breath and was complaining of recurrent chest pains. REVIEW OF SYSTEMS: LUNGS: Some shortness of breath. GASTROINTESTINAL: No nausea, vomiting, diarrhea or constipation. CARDIOVASCULAR: Recurrent chest pains. PHYSICAL EXAMINATION: GENERAL APPEARANCE: Alert and oriented, in no visible distress. HEENT AND NECK: Extraocular movements are intact. Sclerae are anicteric. Oral mucosa is moist and clean. No obvious facial weakness. Neck is supple without any lymphadenopathy. No thyromegaly. No JVD. No carotid arterial bruits. LUNGS: Clear to auscultation. No wheezing. No rhonchi. CARDIOVASCULAR SYSTEM: Heart rate is regular in rate and rhythm. S1 and S2 normally audible. No significant murmur or any other abnormal cardiac sounds. ABDOMEN: Soft, nontender. No obvious organomegaly. Bowel sounds are present. No obvious herniation. EXTREMITIES: Without significant cyanosis or edema. Warm to touch. CENTRAL NERVOUS SYSTEM: Alert and oriented x 3. Cranial nerves II-XII are intact. Speech is normal. The patient is able to move all extremities. Normal muscle strength. Deep tendon reflexes are equal on both sides. Plantars were downgoing. IMPRESSION AND PLAN: 1. The patient with uncontrolled type 2 diabetes mellitus with severe hyperglycemia. Blood sugars are being controlled and improved with sliding scale of regular insulin and no concentrated sweet diet. 2. Recurrent chest pains for which I am consulting Cardiology and cardiac enzymes have been negative so far. 3. Elevated liver enzymes after cholecystectomy from uncertain etiology. The patient's surgeon, Dr. Loya, and also technical business analyst, Dr. Jimenez, have been consulted for expert opinion. CAT scan of the abdomen did not show any acute abnormality and AST and ALT are elevated along with bilirubin and alkaline phosphatase. 4. Type 2 diabetes mellitus with uncontrolled blood sugars being monitored and controlled. The patient is very poorly compliant with his diet and he has uncontrolled type 2 diabetes mellitus. 5. Generalized anxiety disorder treated with clonazepam. 6. Gastroesophageal reflux disease and esophagitis, asymptomatic with omeprazole. 7. Major depression, recurrent, moderate, treated with Cymbalta and controlled. [place], [place] PATIENT HISTORY AND PHYSICAL EX[id number] #: [id number] ROOM: [facility] DOCTOR: YANE CLEMENS MD BIRTHDATE: [birth year] YANE CLEMENS MD CM:HISPHYS:PATIENT HISTORY AND PHYSICAL EXAMINATION 6 2 YANE CLEMENS MD 07/14/17 0942 interface
--- NOTE | ~2017-07-13 | O ---
[place], [place] OPERATIVE NOTE NAME: JUAN PABLO VINES UNIT #: [id number] ROOM: [facility] DOCTOR: SCOOTER SANCHEZKENNETH BIRTHDATE: [birth year] DOS: 07/17/2017 GASTROENDOSCOPIC REPORT INDICATIONS: The patient has presented with abnormal liver function test, undergoing investigation. The patient has fatty liver as well. PROCEDURE: Today's procedure part of investigation is ERCP plus precut papillotomy. PREMEDICATIONS: Versed and Propofol, general anesthesia. SCOPE: Olympus side viewing duodenum scope. REPORT: After putting the patient in left lateral position and application of lubricant to the scope, the scope was introduced. Thereafter, under direct visualization, advanced through the length of esophagus without difficulty into gastric pouch, into duodenal bulb in front of the papilla of Vater. Papilla of Vater is extremely stenotic, definitely does not admit cannulization. Guidewire was used as a probe and with great difficulty, finally partially negotiated and that ends up to be pancreatic duct, which is dominating this stenotic papilla. Over the guidewire, the cannula was introduced into the opening of the pancreatic duct. A precut papillotomy, small, was performed. Flow of the bile was documented. Multiple attempts for cannulization of common duct was unsuccessful. The fact that the bile flow was established and palpable after papillotomy, that is satisfying that the patient has open ampulla. The common duct could have a very tight angulation and approach to the ampulla and therefore, not easily accessible. After photographic series and radiologic documentation that shows the pancreatic duct in the head, genu, body and tail appears to be all within normal limit. Air was suctioned out. The patient was extubated, tolerated the procedure well. IMPRESSION: Papillary stenosis of high-grade, status post precut papillotomy, normal pancreatic duct. No access to common bile duct. PLAN AND DISCUSSION: We are going to do LFTs tomorrow and next day. If they are coming towards normality, then that shows the papillotomy has helped some. Otherwise, some of his underlying hepatocellular pathology also has to be in consideration because of fatty liver in addition. Workup is in progress. [place], [place] OPERATIVE NOTE NAME: JUAN PABLO VINES UNIT #: [id number] ROOM: 504 DOCTOR: SCOOTER SANCHEZ,KENNETH BIRTHDATE: [birth year] KENNETH HELMS MD CM:OPRECORD:OPERATIVE NOTE [id number] KENNETH HELMS MD 07/17/17 1114 interface
--- NOTE | ~2017-07-13 | DS ---
[place], [place] DISCHARGE SUMMARY [id number] #: [id number] ROOM: 504 DOCTOR: YANE CLEMENS MD BIRTHDATE: [birth year] DOS: 07/18/2017 DISCHARGE DIAGNOSES: 1. The patient with papillary stenosis, status post papillotomy with endoscopic retrograde cholangiopancreatography. 2. Uncontrolled type 2 diabetes mellitus. 3. Major depression, recurrent, moderate. 4. Gastroesophageal reflux disease and esophagitis. 5. Chest pains, evaluated by Cardiology, results were normal. 6. Generalized anxiety disorder. HOSPITAL COURSE: The patient presented to the Emergency Department at [facility] with elevated sugars, above 600 and he was having some pain at the cholecystectomy site, which was 3 weeks ago. The patient's liver enzymes were found to be elevated and he apparently had stenosis of the common bile duct and he underwent a papillotomy. Following this, he is eating well and his liver enzymes have also improved and he has been cleared by Dr. Jimenez, the potato seed cutter and his surgeon, Dr. Loya to be discharged to home. He is eating well and tolerating his diet too. Complains of chest pains, which were evaluated with a cardiac stress test, which turned out to be normal. The patient was evaluated by Cardiology. Uncontrolled type 2 diabetes mellitus, with poor compliance with diet. Blood sugars were monitored and treated. Major depression, recurrent, moderate, treated and controlled with Cymbalta. LABORATORY DATA: X-ray KUB without acute abnormality. Normal serum electrolytes. Liver enzymes improved. Alkaline phosphatase now at 166, ALT 133, AST 62. DISCHARGE MANAGEMENT: Lantus insulin 60 units subcutaneous daily, Cymbalta 60 mg a day, metformin 1000 mg b.i.d., Protonix 40 mg daily, Seroquel 400 mg at bedtime, Colace 200 mg at bedtime, clonazepam 2 mg b.i.d., Vicodin 1 tablet every 8 hours p.r.n. for pain. [place], [place] DISCHARGE SUMMARY NAME: JUAN PABLO VINES UNIT #: [id number] ROOM: 504 DOCTOR: YANE CLEMENS MD BIRTHDATE: [birth year] YANE CLEMENS MD CM:CARROL [id number] YANE CLEMENS MD 07/18/172126 interface
[~2017-07-13 15:42] MED LIST changes: +CIPROFLOXACIN500 M4 PO; +HYDROCODONE-AC1 EAC1 PO; +Humulin R SC; +Lantus SC; +SEROQUEL200 MG PO
[2017-07-13 15:46] VITALS: BP 137/94
[2017-07-13 16:09] LABS: BASO % 0.5 % (0.0-1.0); EOS # 0.1 10*3/uL (0.0-0.4); EOS % 1.1 % (1.0-4.0); HEMATOCRIT 41.7 % (42.0-52.0); HEMOGLOBIN 14.3 g/dl (14.0-18.0); LYMPH # 1.3 10*3/uL (1.3-4.4); LYMPH % 18.2 % (27.0-41.0); MEAN CELL VOLUME 88.5 fl (80.0-94.0); MEAN CORPUSCULAR HGB 30.4 pg (27.0-31.0); MEAN CORPUSCULAR HGB CONC 34.3 g/dl (33.0-37.0); MEAN PLATELET VOLUME 10.7 fl (9.6-12.3); MONO # 0.5 10*3/uL (0.1-1.0); MONO % 6.7 % (3.0-9.0); NEUT # 5.3 10*3/uL (2.3-7.9); NEUT % 73.2 % (47.0-73.0); PLATELET COUNT AUTOMATED 184 10*3/uL (130-400); RED BLOOD COUNT 4.71 10*6/uL (4.50-5.90); RED CELL DISTRI WIDTH 13.2 % (0-14.5); WHITE BLOOD COUNT 7.3 10*3/uL (4.8-10.8)
[2017-07-13 16:25] LABS: ACT PARTIAL THROMBO TIME 25.2 SECONDS (20.8-31.5)
[2017-07-13 16:28] LABS: ALBUMIN 3.5 gm/dl (3.1-4.5); ALKALINE PHOSPHATASE 218 U/L (45-117); BUN 9 mg/dl (7-24); CHLORIDE 98 mmol/L (98-107); CREATININE 1.24 mg/dL (0.70-1.30); POTASSIUM 4.3 mmol/L (3.5-5.1); SGOT/AST 472 IU/L (3-35); SGPT/ALT 176 U/L (12-78); SODIUM 132 mmol/L (136-145); TOTAL PROTEIN 7.6 gm/dL (6.4-8.2)
[2017-07-13 16:29] LABS: TROPONIN I < 0.015 ng/ml (<0.045)
[2017-07-13 18:17] VITALS: BP 120/65
[2017-07-13 18:40] VITALS: BP 127/85
[2017-07-13 20:00] VITALS: BP 111/79
[2017-07-14 06:56] LABS: ALBUMIN 3.3 gm/dl (3.1-4.5); ALKALINE PHOSPHATASE 252 U/L (45-117); BILIRUBIN, DIRECT 1.7 mg/dL (0.0-0.2); BUN 8 mg/dl (7-24); CHLORIDE 102 mmol/L (98-107); CREATININE 0.94 mg/dL (0.70-1.30); SGOT/AST 628 IU/L (3-35); SGPT/ALT 386 U/L (12-78); SODIUM 138 mmol/L (136-145); TOTAL PROTEIN 7.2 gm/dL (6.4-8.2)
[2017-07-14 08:00] VITALS: BP 94/76
[2017-07-14 11:04] LABS: LIPASE 70 U/L (73-393)
[2017-07-14 12:00] VITALS: BP 98/72
[2017-07-14 16:00] VITALS: BP 107/69
[2017-07-14 20:00] VITALS: BP 115/73
[2017-07-15] VITALS (9 sets, daily range): BP systolic 110–134; BP diastolic 53–88
[2017-07-15 07:14] LABS: ALBUMIN 2.9 gm/dl (3.1-4.5); ALKALINE PHOSPHATASE 234 U/L (45-117); BILIRUBIN, DIRECT 0.6 mg/dL (0.0-0.2); BUN 7 mg/dl (7-24); CHLORIDE 105 mmol/L (98-107); CREATININE 0.88 mg/dL (0.70-1.30); POTASSIUM 3.9 mmol/L (3.5-5.1); SGOT/AST 243 IU/L (3-35); SGPT/ALT 281 U/L (12-78); SODIUM 138 mmol/L (136-145); TOTAL PROTEIN 6.2 gm/dL (6.4-8.2)
[2017-07-16] VITALS: BP 113/68
[2017-07-16 07:22] LABS: ALBUMIN 2.8 gm/dl (3.1-4.5); ALKALINE PHOSPHATASE 183 U/L (45-117); BILIRUBIN, DIRECT 0.3 mg/dL (0.0-0.2); BUN 4 mg/dl (7-24); CHLORIDE 107 mmol/L (98-107); CREATININE 0.73 mg/dL (0.70-1.30); POTASSIUM 3.9 mmol/L (3.5-5.1); SGOT/AST 101 IU/L (3-35); SGPT/ALT 186 U/L (12-78); SODIUM 139 mmol/L (136-145); TOTAL PROTEIN 6.1 gm/dL (6.4-8.2)
[2017-07-16 08:00] VITALS: BP 132/90
[2017-07-16 12:00] VITALS: BP 143/69
[2017-07-16 16:00] VITALS: BP 132/85
[2017-07-16 20:00] VITALS: BP 129/76
[2017-07-17] VITALS (10 sets, daily range): BP systolic 103–135; BP diastolic 56–80
[2017-07-17 14:10] LABS: ALBUMIN 3.1 gm/dl (3.1-4.5); BILIRUBIN, DIRECT 0.3 mg/dL (0.0-0.2); TOTAL PROTEIN 6.3 gm/dL (6.4-8.2)
[2017-07-18] VITALS: BP 125/71
[2017-07-18 08:00] VITALS: BP 127/79
[2017-07-18 12:00] VITALS: BP 123/82
[2017-07-18 16:00] VITALS: BP 129/76
== END 2017-07-18 19:19 | disposition home or self-care (01) | DRG 637 ==
LOC: ED 15:42 → EDHOLD 17:43 → 5E 17:43
PROVIDERS: Emergency Medicine; Internal Medicine
PROC: BF45ZZZ Ultrasonography of Liver (ICD-10-PCS; principal; 2017-07-14)
PROC: 0FJB8ZZ Inspection of Hepatobiliary Duct, Via Natural or Artificial Opening Endoscopic (ICD-10-PCS; 2017-07-15)
PROC: 4A02XM4 Measurement of Cardiac Total Activity, External Approach (ICD-10-PCS; 2017-07-15)
PROC: 3E073KZ Introduction of Other Diagnostic Substance into Coronary Artery, Percutaneous Approach (ICD-10-PCS; 2017-07-15)
PROC: 0F9C8ZZ Drainage of Ampulla of Vater, Via Natural or Artificial Opening Endoscopic (ICD-10-PCS; 2017-07-17)
DX: E11.65 Type 2 diabetes mellitus with hyperglycemia (principal); K83.1 Obstruction of bile duct; F33.1 Major depressive disorder, recurrent, moderate; K76.0 Fatty (change of) liver, not elsewhere classified; K83.8 Other specified diseases of biliary tract; E80.6 Other disorders of bilirubin metabolism; R07.9 Chest pain, unspecified; F41.1 Generalized anxiety disorder; K21.0 Gastro-esophageal reflux disease with esophagitis; Z96.652 Presence of left artificial knee joint; R74.0 Nonspecific elevation of levels of transaminase and lactic acid dehydrogenase [LDH]; I10 Essential (primary) hypertension; E78.5 Hyperlipidemia, unspecified; E66.9 Obesity, unspecified; J44.9 Chronic obstructive pulmonary disease, unspecified; K22.70 Barrett's esophagus without dysplasia; Z90.49 Acquired absence of other specified parts of digestive tract; Z88.0 Allergy status to penicillin; Z91.041 Radiographic dye allergy status; Z79.4 Long term (current) use of insulin; Z79.899 Other long term (current) drug therapy; Z82.3 Family history of stroke; Z83.3 Family history of diabetes mellitus; Z68.28 Body mass index [BMI] 28.0-28.9, adult

== ENCOUNTER 2017-12-15 12:41 | Inpatient (IN) | payer MEDICARE ==
[~2017-12-15] VITALS: Ht 180.3 cm; Wt 84.0 kg
--- NOTE | ~2017-12-15 | DS ---
[place], [place] DISCHARGE SUMMARY NAME: JUAN PABLO VINES UNIT #: [id number] ROOM: 517 DOCTOR: YANE CLEMENS MD BIRTHDATE: [birth year] DOS: 12/17/2017 DISCHARGE DIAGNOSES: 1. Uncontrolled type 2 diabetes mellitus with poor compliance with diet. 2. Major depression, recurrent, moderate. 3. Chronic constipation. 4. Generalized anxiety disorder. 5. Hypothyroidism. 6. Gastroesophageal reflux disease and esophagitis. 7. Type 2 diabetes mellitus. 8. Hypothyroidism. 9. Benign prostatic hyperplasia and urinary retention. 10. Severe generalized anxiety disorder and chronic primary insomnia. HOSPITAL COURSE: 1. The patient was admitted to [facility], uncontrolled type 2 diabetes mellitus with sugars going above 500. The patient was admitted and he was put on no concentrated sweet diet and a sliding scale of regular insulin. The patient's blood sugars have gradually dropped and ranging between 100-150 mostly and he is feeling much better. The patient was hydrated with normal saline and is finally being discharged to home in good condition. 2. Benign prostatic hyperplasia and urinary retention, asymptomatic with Flomax. 3. Dehydration from hyperglycemia and glucosuria, treated with hydration and normal saline and the patient is eating well now. 4. GERD and esophagitis, treated with Protonix. 5. Nausea, apparently related to hyperglycemia, resolved. 6. Severe generalized anxiety disorder, treated and controlled with clonazepam. 7. Chronic pain syndrome. The patient ambulates better with hydrocodone which has been continued. DISCHARGE MANAGEMENT: Clonazepam 2 mg at bedtime, Vicodin q.i.d. p.r.n. for pain, Flomax 0.4 mg a day, Colace 200 mg a day, gabapentin 100 mg b.i.d., Seroquel 400 mg at bedtime, 80 units of Lantus insulin at bedtime, levothyroxine 75 mcg daily, Protonix 40 mg a day, metformin 1000 mg b.i.d., Cymbalta 60 mg a day, Victoza 1.8 mg subQ daily. [place], [place] DISCHARGE SUMMARY NAME: JUAN PABLO VINES UNIT #: [id number] ROOM: 517 DOCTOR: YANE CLEMENS MD BIRTHDATE: [birth year] YANE CLEMENS MD CM:CARROL [id number] YANE CLEMENS MD 12/17/17 181 interface
--- NOTE | ~2017-12-15 | WRIGHTHP ---
[place], [place] PATIENT HISTORY AND PHYSICAL EXAM NAME: JUAN PABLO VINES [facility] #: [id number] UNIT #: [id number] ROOM: 517 DOCTOR: YANE CLEMENS MD BIRTHDATE: [birth year] DOS: 12/15/2017 HISTORY OF PRESENT ILLNESS: The patient is a 57-year-old gentleman who presented to my office yesterday with feeling sick and blood sugars going above 500. The patient was weak and nauseous and he was admitted to [facility] for further management. Today with hydration and better control on his sugars, he is starting to feel better. Heart rate ranged between 86-110 beats per minute. Blood pressure ranging between 106 systolic to 120 systolic over 62 diastolic to 84 diastolic. Pulse ox is good. He is afebrile. PHYSICAL EXAMINATION: GENERAL APPEARANCE: The patient is alert and oriented x 3, in no visible distress. HEENT AND NECK: Exam within normal limits. CARDIOVASCULAR SYSTEM: Heart rate is regular in rate and rhythm. S1 and S2 normally audible. LUNGS: Clear to auscultation. ABDOMEN: Soft, nontender. No obvious organomegaly. Bowel sounds are present. EXTREMITIES: Without significant cyanosis or edema. MUSCULOSKELETAL: Generalized weakness. REVIEW OF SYSTEMS: RESPIRATORY: No increasing shortness of breath or wheezing. GASTROINTESTINAL: The patient with some nausea. CARDIOVASCULAR: No chest pain, no palpitations. FAMILY HISTORY: Noncontributory. HOME MEDICATIONS: The patient takes Victoza, Cymbalta, metformin, Protonix, levothyroxine, insulin, gabapentin, Colace, clonazepam, Vicodin. ALLERGIES: The patient has known allergies to PENICILLIN and IODINE. LABORATORY DATA: Normal serum electrolytes, except for potassium low at 3.4, blood sugar 248. Normal CBC. IMPRESSION AND PLAN: 1. Uncontrolled diabetes mellitus with blood sugars going above 500, have improved with use of sliding scale and continuing his home dose of insulin at an increased dose and his Victoza. The patient is starting to get his energy back and nausea is improving. I plan to watch him until tomorrow and hopefully discharge him to home once his blood sugar is better controlled. 2. Major depression, recurrent, moderate, treated and controlled with Cymbalta. 3. Chronic constipation, treated and controlled with Colace. 4. Generalized anxiety disorder, treated and controlled with clonazepam. 5. Hypothyroidism, treated with levothyroxine, which was continued. 6. Gastroesophageal reflux disease and esophagitis, asymptomatic with Protonix. [place], [place] PATIENT HISTORY AND PHYSICAL EXAM NAME: JUAN PABLO VINES UNIT #: [id number] ROOM: [facility] DOCTOR: YANE CLEMENS MD BIRTHDATE: [birth year] YANE CLEMENS MD CM:HISPHYS:PATIENT HISTORY AND PHYSICAL EXAMINATION [id number] YANE CELMENS MD 12/25/17 0900 interface
[~2017-12-15 12:41] MED LIST changes: +SEROQUEL XR400 MG PO; -SEROQUEL400 MG PO
[2017-12-15 13:00] VITALS: BP 119/85
[2017-12-15] MEDS ORDERED: VICTOZA 3-PAK6 MG/ML SC (13:12)
[2017-12-15] MEDS ORDERED: NEURONTIN100 MG PO (13:14)
[2017-12-15] MEDS ORDERED: SYNTHROID,LEVO75 MCG PO (13:14)
[2017-12-15] MEDS ORDERED: FLOMAX0.4 MG PO (13:14)
[2017-12-15 13:15] VITALS: BP 119/85
[2017-12-15] MEDS ORDERED: BREO ELLIPTA 11 EACH INH (13:15)
[2017-12-15 15:54] VITALS: BP 119/82
[2017-12-15 20:00] VITALS: BP 115/62
[2017-12-15 21:45] VITALS: BP 104/72
[2017-12-16] VITALS: BP 110/68
[2017-12-16 04:00] VITALS: BP 106/82
[2017-12-16 06:27] LABS: BASO # 0.1 10*3/uL (0.0-0.1); BASO % 0.7 % (0.0-1.0); EOS # 0.1 10*3/uL (0.0-0.4); EOS % 2.1 % (1.0-4.0); HEMATOCRIT 43.5 % (42.0-52.0); HEMOGLOBIN 14.7 g/dl (14.0-18.0); LYMPH # 2.8 10*3/uL (1.3-4.4); LYMPH % 41.3 % (27.0-41.0); MEAN CELL VOLUME 92.4 fl (80.0-94.0); MEAN CORPUSCULAR HGB 31.2 pg (27.0-31.0); MEAN CORPUSCULAR HGB CONC 33.8 g/dl (33.0-37.0); MEAN PLATELET VOLUME 10.4 fl (9.6-12.3); MONO # 0.5 10*3/uL (0.1-1.0); MONO % 6.7 % (3.0-9.0); NEUT # 3.3 10*3/uL (2.3-7.9); NEUT % 48.6 % (47.0-73.0); PLATELET COUNT AUTOMATED 162 10*3/uL (130-400); RED BLOOD COUNT 4.71 10*6/uL (4.50-5.90); WHITE BLOOD COUNT 6.7 10*3/uL (4.8-10.8)
[2017-12-16 06:49] LABS: BUN 14 mg/dl (7-24); CHLORIDE 102 mmol/L (98-107); CREATININE 0.93 mg/dL (0.70-1.30); POTASSIUM 3.4 mmol/L (3.5-5.1); SODIUM 137 mmol/L (136-145)
[2017-12-16 07:43] VITALS: BP 110/84
[2017-12-16 11:39] LABS: BILIRUBIN NEGATIVE (NEGATIVE); BLOOD 3+ (NEGATIVE); CLARITY CLEAR (CLEAR); COLOR YELLOW (YELLOW); GLUCOSE 3+ (NEGATIVE); KETONE NEGATIVE (NEGATIVE); LEUKO ESTERASE NEGATIVE (NEGATIVE); NITRITE NEGATIVE (NEGATIVE); RBC 16-20 rbc/hpf (0-2); UROBILINOGEN < 0.2 E.U./dl (0.2-1.0)
[2017-12-16 11:40] LABS: BACTERIA 2+; MUCOUS 2+
[2017-12-16 12:00] VITALS: BP 121/77
[2017-12-16 16:00] VITALS: BP 111/77
[2017-12-16 20:00] VITALS: BP 117/79
[2017-12-17] VITALS: BP 94/60
[2017-12-17 08:00] VITALS: BP 116/80
[2017-12-17 12:00] VITALS: BP 94/61
[2017-12-17 16:00] VITALS: BP 122/84
== END 2017-12-17 18:48 | disposition home or self-care (01) | DRG 638 ==
LOC: 5E 12:41
PROVIDERS: Internal Medicine
DX: E11.65 Type 2 diabetes mellitus with hyperglycemia (principal); F33.1 Major depressive disorder, recurrent, moderate; K59.09 Other constipation; F41.1 Generalized anxiety disorder; E03.9 Hypothyroidism, unspecified; N40.1 Benign prostatic hyperplasia with lower urinary tract symptoms; R33.8 Other retention of urine; G47.00 Insomnia, unspecified; K21.0 Gastro-esophageal reflux disease with esophagitis; E86.0 Dehydration; Z79.4 Long term (current) use of insulin; Z79.899 Other long term (current) drug therapy

== ENCOUNTER → 2018-06-10 | Outpatient (CLI) | payer MEDICARE ==
[~2018-06-10] MED LIST changes: +NEURONTIN100 MG PO
== END | disposition home or self-care (01) ==
LOC: RAD 11:23
DX: R06.02 Shortness of breath (principal); R05 Cough; E11.9 Type 2 diabetes mellitus without complications; Z87.891 Personal history of nicotine dependence

== ENCOUNTER → 2018-07-02 | Day surgery (SDC) | payer MEDICARE ==
[~2018-07-02] VITALS: Ht 180.3 cm; Wt 88.5 kg
== END | disposition home or self-care (01) ==
LOC: SDC 06-29 08:45
DX: R19.5 Other fecal abnormalities (principal); Z53.8 Procedure and treatment not carried out for other reasons; Z88.0 Allergy status to penicillin; Z88.3 Allergy status to other anti-infective agents

== ENCOUNTER → 2018-08-16 | Outpatient (CLI) | payer MEDICARE ==
[2018-08-16 07:50] LABS: CREATININE 0.98 mg/dL (0.70-1.30)
== END | disposition home or self-care (01) ==
LOC: LAB 06:57
PROVIDERS: Internal Medicine
DX: R91.1 Solitary pulmonary nodule (principal)

== ENCOUNTER → 2018-08-20 | Outpatient (CLI) | payer MEDICARE | END | disposition home or self-care (01) | LOC: CT 00:27 | DX: J43.9 Emphysema, unspecified (principal); R91.1 Solitary pulmonary nodule; I12.9 Hypertensive chronic kidney disease with stage 1 through stage 4 chronic kidney disease, or unspecified chronic kidney disease; D63.1 Anemia in chronic kidney disease; N18.9 Chronic kidney disease, unspecified ==

== ENCOUNTER → 2018-09-20 | Outpatient (CLI) | payer MEDICARE ==
[2018-09-20 09:10] LABS: BUN 9 mg/dl (7-24); CHLORIDE 105 mmol/L (98-107); CREATININE 0.83 mg/dL (0.70-1.30); POTASSIUM 3.9 mmol/L (3.5-5.1); SODIUM 139 mmol/L (136-145)
== END | disposition home or self-care (01) ==
LOC: LAB 08:21
PROVIDERS: Internal Medicine
DX: I10 Essential (primary) hypertension (principal); E11.65 Type 2 diabetes mellitus with hyperglycemia

== ENCOUNTER → 2018-12-23 | Outpatient (CLI) | payer MEDICARE ==
[2018-12-23 17:18] LABS: CREATININE 0.91 mg/dL (0.70-1.30)
== END | disposition home or self-care (01) ==
LOC: LAB 15:28
PROVIDERS: Surgery
DX: R10.11 Right upper quadrant pain (principal)

== ENCOUNTER → 2018-12-25 | Outpatient (CLI) | payer MEDICARE | END | disposition home or self-care (01) | LOC: CT 00:09 | DX: K76.0 Fatty (change of) liver, not elsewhere classified (principal); K46.9 Unspecified abdominal hernia without obstruction or gangrene; N20.0 Calculus of kidney; Z90.49 Acquired absence of other specified parts of digestive tract ==

== ENCOUNTER → 2018-12-30 | Outpatient (CLI) | payer MEDICARE ==
[2018-12-31 07:05] LABS: HEPATITIS B SURFACE AG Negative (Negative); HEPATITIS C VIRUS ANTIBODY 0.1 s/co (0.0-0.9)
== END | disposition home or self-care (01) ==
LOC: LAB 10:10
PROVIDERS: Internal Medicine
DX: K74.60 Unspecified cirrhosis of liver (principal)

== ENCOUNTER → 2019-03-08 | Outpatient (CLI) | payer MEDICARE ==
[2019-03-08 14:26] LABS: BASO # 0.1 10*3/uL (0.0-0.1); BASO % 0.9 % (0.0-1.0); EOS # 0.2 10*3/uL (0.0-0.4); EOS % 3.6 % (1.0-4.0); HEMATOCRIT 41.6 % (42.0-52.0); HEMOGLOBIN 13.8 g/dl (14.0-18.0); LYMPH # 2.4 10*3/uL (1.3-4.4); LYMPH % 42.5 % (27.0-41.0); MEAN CELL VOLUME 91.2 fl (80.0-94.0); MEAN CORPUSCULAR HGB 30.3 pg (27.0-31.0); MEAN CORPUSCULAR HGB CONC 33.2 g/dl (33.0-37.0); MEAN PLATELET VOLUME 9.6 fl (9.6-12.3); MONO # 0.4 10*3/uL (0.1-1.0); MONO % 6.8 % (3.0-9.0); NEUT # 2.5 10*3/uL (2.3-7.9); NEUT % 45.3 % (47.0-73.0); PLATELET COUNT AUTOMATED 178 10*3/uL (130-400); RED BLOOD COUNT 4.56 10*6/uL (4.50-5.90); RED CELL DISTRI WIDTH 13.6 % (0-14.5); WHITE BLOOD COUNT 5.6 10*3/uL (4.8-10.8)
[2019-03-08 14:54] LABS: ALBUMIN 3.6 gm/dl (3.1-4.5); ALKALINE PHOSPHATASE 96 U/L (45-117); BUN 5 mg/dl (7-24); CHLORIDE 108 mmol/L (98-107); CREATININE 0.92 mg/dL (0.70-1.30); POTASSIUM 3.9 mmol/L (3.5-5.1); SGOT/AST 36 IU/L (3-35); SODIUM 140 mmol/L (136-145); TOTAL PROTEIN 7.2 gm/dL (6.4-8.2)
[2019-03-08 14:55] LABS: SGPT/ALT 30 U/L (12-78)
== END | disposition home or self-care (01) ==
LOC: LAB 14:04
PROVIDERS: Internal Medicine
DX: R53.81 Other malaise (principal); R79.89 Other specified abnormal findings of blood chemistry

== ENCOUNTER 2019-09-14 10:45 | Inpatient (IN) | payer MEDICARE ==
[~2019-09-14] VITALS: Ht 180.3 cm; Wt 74.1 kg
[~2019-09-14 10:45] MED LIST changes: +VICTOZA 3-0.6 MG/0.1 SQ
[2019-09-14 10:46] VITALS: BP 102/60
[2019-09-14 11:49] LABS: HEMATOCRIT 40.1 % (42.0-52.0); LYMPH # 0.6 10*3/uL (1.3-4.4); LYMPH % 28.7 % (27.0-41.0); MEAN CELL VOLUME 88.9 fl (80.0-94.0); MEAN CORPUSCULAR HGB 30.4 pg (27.0-31.0); MEAN CORPUSCULAR HGB CONC 34.2 g/dl (33.0-37.0); MEAN PLATELET VOLUME 9.7 fl (9.6-12.3); MONO # 0.1 10*3/uL (0.1-1.0); MONO % 6.4 % (3.0-9.0); NEUT # 1.3 10*3/uL (2.3-7.9); NEUT % 64.4 % (47.0-73.0); PLATELET COUNT AUTOMATED 105 10*3/uL (130-400); RED BLOOD COUNT 4.51 10*6/uL (4.50-5.90); RED CELL DISTRI WIDTH 13.2 % (0-14.5)
[2019-09-14 12:03] LABS: ALBUMIN 3.2 gm/dl (3.1-4.5); ALKALINE PHOSPHATASE 90 U/L (45-117); BUN 13 mg/dl (7-24); CHLORIDE 100 mmol/L (98-107); CREATININE 1.22 mg/dL (0.70-1.30); POTASSIUM 3.1 mmol/L (3.5-5.1); SGOT/AST 184 IU/L (3-35); SGPT/ALT 59 U/L (12-78); SODIUM 133 mmol/L (136-145); TOTAL PROTEIN 7.9 gm/dL (6.4-8.2)
[2019-09-14 15:50] VITALS: BP 94/42
[2019-09-14 18:10] VITALS: BP 126/73
[2019-09-14 19:05] LABS: LDH 460 U/L (87-241)
[2019-09-14 19:30] LABS: TROPONIN I < 0.015 ng/ml (<0.045)
[2019-09-14 19:46] LABS: ABG BASE EXCESS -0.2 mmol/L (-2.0-2.0); ARTERIAL BLOOD GAS PH 7.467 (7.35-7.45)
[2019-09-14 20:00] VITALS: BP 107/57
[2019-09-15] VITALS (28 sets, daily range): BP systolic 97–169; BP diastolic 54–104
[2019-09-15 00:56] LABS: INTERNATIONAL NORM RATIO 1.1 (2.0-3.5)
[2019-09-15 06:19] LABS: ALBUMIN 3.1 gm/dl (3.1-4.5); ALKALINE PHOSPHATASE 93 U/L (45-117); BUN 17 mg/dl (7-24); CHLORIDE 102 mmol/L (98-107); CPK 74 U/L (39-308); CREATININE 0.98 mg/dL (0.70-1.30); POTASSIUM 3.7 mmol/L (3.5-5.1); SGOT/AST 125 IU/L (3-35); SGPT/ALT 52 U/L (12-78); SODIUM 133 mmol/L (136-145)
[2019-09-15 06:20] LABS: MEAN CELL VOLUME 88.6 fl (80.0-94.0); MEAN CORPUSCULAR HGB 30.2 pg (27.0-31.0); PLATELET COUNT AUTOMATED 111 10*3/uL (130-400); RED BLOOD COUNT 4.74 10*6/uL (4.50-5.90); RED CELL DISTRI WIDTH 13.1 % (0-14.5)
[2019-09-15 06:23] LABS: WHITE BLOOD COUNT 1.4 10*3/uL (4.8-10.8)
[2019-09-15 07:03] LABS: BURR CELLS MODERATE; PLATELET SUFFICIENCY LOW (NORMAL); ROULEAUX SLIGHT; TOTAL CELLS COUNTED 100 #CELLS
[2019-09-15 07:34] LABS: ABG BASE EXCESS -3.4 mmol/L (-2.0-2.0); ARTERIAL BLOOD GAS PH 7.408 (7.35-7.45)
[2019-09-15 10:27] LABS: CLARITY SL CLOUDY (CLEAR); COLOR YELLOW (YELLOW)
[2019-09-15 10:33] LABS: BILIRUBIN 1+ (NEGATIVE); BLOOD 3+ (NEGATIVE); GLUCOSE 2+ (NEGATIVE); KETONE 2+ (NEGATIVE); LEUKO ESTERASE NEGATIVE (NEGATIVE); NITRITE NEGATIVE (NEGATIVE); UROBILINOGEN 0.2 E.U./dl (0.2-1.0)
[2019-09-15 10:39] LABS: BACTERIA 3+; RBC 41-50 rbc/hpf (0-2)
[2019-09-15 11:01] LABS: ABG BASE EXCESS -3.2 mmol/L (-2.0-2.0); ARTERIAL BLOOD GAS PH 7.38 (7.35-7.45)
[2019-09-15 13:40] LABS: ABG BASE EXCESS -4.3 mmol/L (-2.0-2.0); ARTERIAL BLOOD GAS PH 7.296 (7.35-7.45)
[2019-09-15] MEDS ORDERED: CYCLOBENZAPRINE10 MG PO (16:44)
[2019-09-15] MEDS ORDERED: FLUOXETINE HCL60 MG PO (16:47)
[2019-09-15] MEDS ORDERED: VENLAFAXINE HYD75 MG PO (16:56)
[2019-09-15] MEDS ORDERED: ONDANSETRON HYDR4 M1 PO (16:59)
[2019-09-15 17:28] LABS: ABG BASE EXCESS -4.6 mmol/L (-2.0-2.0); ARTERIAL BLOOD GAS PH 7.358 (7.35-7.45)
[2019-09-15 20:18] LABS: ABG BASE EXCESS -3.7 mmol/L (-2.0-2.0); ARTERIAL BLOOD GAS PH 7.355 (7.35-7.45)
[2019-09-16] VITALS (24 sets, daily range): BP systolic 95–152; BP diastolic 57–84
[2019-09-16 05:19] LABS: ALBUMIN 2.8 gm/dl (3.1-4.5); ALKALINE PHOSPHATASE 95 U/L (45-117); BUN 21 mg/dl (7-24); CHLORIDE 106 mmol/L (98-107); CREATININE 0.84 mg/dL (0.70-1.30); LDH 433 U/L (87-241); POTASSIUM 3.9 mmol/L (3.5-5.1); SGOT/AST 111 IU/L (3-35); SGPT/ALT 56 U/L (12-78); SODIUM 137 mmol/L (136-145); TOTAL PROTEIN 7.1 gm/dL (6.4-8.2); TRIGLYCERIDES 413 mg/dl (<150)
[2019-09-16 06:57] LABS: HEMATOCRIT 38.9 % (42.0-52.0); LYMPH # 0.5 10*3/uL (1.3-4.4); LYMPH % 25.7 % (27.0-41.0); MEAN CELL VOLUME 91.3 fl (80.0-94.0); MEAN CORPUSCULAR HGB 30.3 pg (27.0-31.0); MEAN CORPUSCULAR HGB CONC 33.2 g/dl (33.0-37.0); MEAN PLATELET VOLUME 10.4 fl (9.6-12.3); MONO # 0.2 10*3/uL (0.1-1.0); MONO % 7.8 % (3.0-9.0); NEUT # 1.4 10*3/uL (2.3-7.9); PLATELET COUNT AUTOMATED 140 10*3/uL (130-400); RED BLOOD COUNT 4.26 10*6/uL (4.50-5.90); RED CELL DISTRI WIDTH 13.6 % (0-14.5); WHITE BLOOD COUNT 2.1 10*3/uL (4.8-10.8)
[2019-09-16 07:37] LABS: ABG BASE EXCESS -2.3 mmol/L (-2.0-2.0); ARTERIAL BLOOD GAS PH 7.35 (7.35-7.45)
[2019-09-16 08:11] LABS: HEP B CORE AB, IGM Negative (Negative); HEPATITIS B SURFACE AG Negative (Negative); HEPATITIS C VIRUS ANTIBODY <0.1 s/co (0.0-0.9)
[2019-09-16 17:26] LABS: ABG BASE EXCESS 0.8 mmol/L (-2.0-2.0); ARTERIAL BLOOD GAS PH 7.44 (7.35-7.45)
[2019-09-17] VITALS (18 sets, daily range): BP systolic 105–169; BP diastolic 68–99
[2019-09-17 05:55] LABS: ALBUMIN 2.8 gm/dl (3.1-4.5); ALKALINE PHOSPHATASE 112 U/L (45-117); BUN 26 mg/dl (7-24); CHLORIDE 106 mmol/L (98-107); CREATININE 0.89 mg/dL (0.70-1.30); LDH 475 U/L (87-241); POTASSIUM 3.8 mmol/L (3.5-5.1); SGOT/AST 116 IU/L (3-35); SGPT/ALT 64 U/L (12-78); SODIUM 139 mmol/L (136-145); TOTAL PROTEIN 7.1 gm/dL (6.4-8.2); TRIGLYCERIDES 369 mg/dl (<150)
[2019-09-17 06:41] LABS: HEMATOCRIT 40.2 % (42.0-52.0); LYMPH # 0.9 10*3/uL (1.3-4.4); LYMPH % 23.1 % (27.0-41.0); MEAN CELL VOLUME 90.1 fl (80.0-94.0); MEAN CORPUSCULAR HGB 30.3 pg (27.0-31.0); MEAN CORPUSCULAR HGB CONC 33.6 g/dl (33.0-37.0); MEAN PLATELET VOLUME 10.3 fl (9.6-12.3); MONO # 0.3 10*3/uL (0.1-1.0); MONO % 6.8 % (3.0-9.0); NEUT # 2.8 10*3/uL (2.3-7.9); NEUT % 69.3 % (47.0-73.0); RED BLOOD COUNT 4.46 10*6/uL (4.50-5.90); RED CELL DISTRI WIDTH 13.6 % (0-14.5)
[2019-09-17 06:46] LABS: PLATELET COUNT AUTOMATED 197 10*3/uL (130-400)
[2019-09-17 07:57] LABS: ABG BASE EXCESS 1.4 mmol/L (-2.0-2.0); ARTERIAL BLOOD GAS PH 7.468 (7.35-7.45)
[2019-09-17 12:39] LABS: ABG BASE EXCESS 1.9 mmol/L (-2.0-2.0); ARTERIAL BLOOD GAS PH 7.419 (7.35-7.45)
[2019-09-17 18:31] LABS: ABG BASE EXCESS 2.1 mmol/L (-2.0-2.0); ARTERIAL BLOOD GAS PH 7.454 (7.35-7.45)
[2019-09-17 22:31] LABS: ABG BASE EXCESS 2.6 mmol/L (-2.0-2.0); ARTERIAL BLOOD GAS PH 7.443 (7.35-7.45)
[2019-09-18] VITALS (17 sets, daily range): BP systolic 95–189; BP diastolic 56–98
[2019-09-18 04:53] LABS: BASO % 0.2 % (0.0-1.0); EOS % 0.2 % (1.0-4.0); HEMATOCRIT 41.8 % (42.0-52.0); LYMPH # 1.2 10*3/uL (1.3-4.4); LYMPH % 24.8 % (27.0-41.0); MEAN CELL VOLUME 91.7 fl (80.0-94.0); MEAN CORPUSCULAR HGB CONC 32.8 g/dl (33.0-37.0); MEAN PLATELET VOLUME 9.8 fl (9.6-12.3); MONO # 0.3 10*3/uL (0.1-1.0); MONO % 6.3 % (3.0-9.0); NEUT # 3.2 10*3/uL (2.3-7.9); NEUT % 67.5 % (47.0-73.0); PLATELET COUNT AUTOMATED 230 10*3/uL (130-400); RED BLOOD COUNT 4.56 10*6/uL (4.50-5.90); RED CELL DISTRI WIDTH 13.9 % (0-14.5); WHITE BLOOD COUNT 4.8 10*3/uL (4.8-10.8)
[2019-09-18 05:09] LABS: ALBUMIN 2.9 gm/dl (3.1-4.5); ALKALINE PHOSPHATASE 119 U/L (45-117); BUN 29 mg/dl (7-24); CHLORIDE 107 mmol/L (98-107); CREATININE 0.87 mg/dL (0.70-1.30); LDH 425 U/L (87-241); POTASSIUM 4.1 mmol/L (3.5-5.1); SGOT/AST 102 IU/L (3-35); SGPT/ALT 77 U/L (12-78); SODIUM 141 mmol/L (136-145); TRIGLYCERIDES 587 mg/dl (<150)
[2019-09-18 06:28] LABS: ABG BASE EXCESS 3.2 mmol/L (-2.0-2.0); ARTERIAL BLOOD GAS PH 7.446 (7.35-7.45)
[2019-09-18 07:23] LABS: ABG BASE EXCESS 1.1 mmol/L (-2.0-2.0); ARTERIAL BLOOD GAS PH 7.384 (7.35-7.45)
[2019-09-18 12:20] LABS: ABG BASE EXCESS 2.7 mmol/L (-2.0-2.0); ARTERIAL BLOOD GAS PH 7.39 (7.35-7.45)
[2019-09-18 16:03] LABS: ABG BASE EXCESS 2.4 mmol/L (-2.0-2.0); ARTERIAL BLOOD GAS PH 7.445 (7.35-7.45)
[2019-09-19] VITALS (11 sets, daily range): BP systolic 101–167; BP diastolic 60–85
[2019-09-19 00:07] LABS: TB1 Ag VALUE 0.03 IU/mL (.)
[2019-09-19 06:12] LABS: ALBUMIN 2.9 gm/dl (3.1-4.5); ALKALINE PHOSPHATASE 120 U/L (45-117); BUN 34 mg/dl (7-24); CHLORIDE 110 mmol/L (98-107); CREATININE 0.74 mg/dL (0.70-1.30); LDH 377 U/L (87-241); POTASSIUM 4.1 mmol/L (3.5-5.1); SGOT/AST 71 IU/L (3-35); SGPT/ALT 65 U/L (12-78); SODIUM 145 mmol/L (136-145); TOTAL PROTEIN 7.2 gm/dL (6.4-8.2); TRIGLYCERIDES 338 mg/dl (<150)
[2019-09-19 06:13] LABS: BASO % 0.3 % (0.0-1.0); EOS % 0.1 % (1.0-4.0); HEMATOCRIT 42.2 % (42.0-52.0); LYMPH % 14.7 % (27.0-41.0); MEAN CELL VOLUME 91.5 fl (80.0-94.0); MEAN CORPUSCULAR HGB 30.2 pg (27.0-31.0); MEAN CORPUSCULAR HGB CONC 32.9 g/dl (33.0-37.0); MEAN PLATELET VOLUME 9.9 fl (9.6-12.3); MONO # 0.4 10*3/uL (0.1-1.0); MONO % 5.5 % (3.0-9.0); NEUT # 5.2 10*3/uL (2.3-7.9); NEUT % 77.8 % (47.0-73.0); PLATELET COUNT AUTOMATED 245 10*3/uL (130-400); PREALBUMIN 30 mg/dl (20-40); RED BLOOD COUNT 4.61 10*6/uL (4.50-5.90); RED CELL DISTRI WIDTH 13.9 % (0-14.5); WHITE BLOOD COUNT 6.7 10*3/uL (4.8-10.8)
[2019-09-19 08:04] LABS: ABG BASE EXCESS 4.6 mmol/L (-2.0-2.0); ARTERIAL BLOOD GAS PH 7.429 (7.35-7.45)
[2019-09-19 13:28] LABS: ABG BASE EXCESS 4.7 mmol/L (-2.0-2.0); ARTERIAL BLOOD GAS PH 7.437 (7.35-7.45)
[2019-09-20] VITALS (13 sets, daily range): BP systolic 104–198; BP diastolic 56–118
[2019-09-20 06:27] LABS: MEAN CELL VOLUME 94.3 fl (80.0-94.0); MEAN CORPUSCULAR HGB CONC 31.8 g/dl (33.0-37.0); MEAN PLATELET VOLUME 10.1 fl (9.6-12.3); PLATELET COUNT AUTOMATED 314 10*3/uL (130-400); RED BLOOD COUNT 4.77 10*6/uL (4.50-5.90); RED CELL DISTRI WIDTH 14.6 % (0-14.5); WHITE BLOOD COUNT 11.5 10*3/uL (4.8-10.8)
[2019-09-20 06:47] LABS: CHLORIDE 109 mmol/L (98-107); POTASSIUM 4.3 mmol/L (3.5-5.1); SODIUM 147 mmol/L (136-145)
[2019-09-20 06:56] LABS: ALBUMIN 3.2 gm/dl (3.1-4.5); ALKALINE PHOSPHATASE 117 U/L (45-117); BUN 41 mg/dl (7-24); CREATININE 0.89 mg/dL (0.70-1.30); LDH 415 U/L (87-241); PREALBUMIN 36 mg/dl (20-40); SGOT/AST 43 IU/L (3-35); SGPT/ALT 54 U/L (12-78); TOTAL PROTEIN 7.3 gm/dL (6.4-8.2); TRIGLYCERIDES 195 mg/dl (<150)
[2019-09-20 07:02] LABS: PLATELET SUFFICIENCY NORMAL (NORMAL); TOTAL CELLS COUNTED 100 #CELLS
[2019-09-20 08:08] LABS: ABG BASE EXCESS 5.4 mmol/L (-2.0-2.0); ARTERIAL BLOOD GAS PH 7.422 (7.35-7.45)
[2019-09-20 13:25] LABS: ABG BASE EXCESS 5.9 mmol/L (-2.0-2.0); ARTERIAL BLOOD GAS PH 7.432 (7.35-7.45)
[2019-09-20 22:38] LABS: ABG BASE EXCESS 6.4 mmol/L (-2.0-2.0); ARTERIAL BLOOD GAS PH 7.4 (7.35-7.45)
[2019-09-21] VITALS (15 sets, daily range): BP systolic 69–158; BP diastolic 34–85
[2019-09-21 04:37] LABS: HEMATOCRIT 46.9 % (42.0-52.0); MEAN CELL VOLUME 96.3 fl (80.0-94.0); MEAN CORPUSCULAR HGB CONC 31.1 g/dl (33.0-37.0); MEAN PLATELET VOLUME 9.8 fl (9.6-12.3); NUCLEATED RED BLOOD CELL 0.2 % (0.0-0.0); PLATELET COUNT AUTOMATED 330 10*3/uL (130-400); RED BLOOD COUNT 4.87 10*6/uL (4.50-5.90); RED CELL DISTRI WIDTH 14.7 % (0-14.5); WHITE BLOOD COUNT 12.2 10*3/uL (4.8-10.8)
[2019-09-21 04:56] LABS: ALKALINE PHOSPHATASE 112 U/L (45-117); BUN 39 mg/dl (7-24); CHLORIDE 113 mmol/L (98-107); CREATININE 0.89 mg/dL (0.70-1.30); LDH 358 U/L (87-241); POTASSIUM 4.7 mmol/L (3.5-5.1); SGOT/AST 40 IU/L (3-35); SGPT/ALT 45 U/L (12-78); SODIUM 149 mmol/L (136-145); TOTAL PROTEIN 7.1 gm/dL (6.4-8.2)
[2019-09-21 04:58] LABS: PLATELET SUFFICIENCY NORMAL (NORMAL); PREALBUMIN 37 mg/dl (20-40); TOTAL CELLS COUNTED 100 #CELLS
[2019-09-21 08:04] LABS: ABG BASE EXCESS 6.2 mmol/L (-2.0-2.0); ARTERIAL BLOOD GAS PH 7.387 (7.35-7.45)
[2019-09-21 12:22] LABS: BILIRUBIN NEGATIVE (NEGATIVE); BLOOD 3+ (NEGATIVE); CLARITY CLEAR (CLEAR); COLOR YELLOW (YELLOW); GLUCOSE NEGATIVE (NEGATIVE); KETONE NEGATIVE (NEGATIVE); LEUKO ESTERASE NEGATIVE (NEGATIVE); NITRITE NEGATIVE (NEGATIVE); SPECIFIC GRAVITY 1.015 (1.005-1.030); UROBILINOGEN 0.2 E.U./dl (0.2-1.0)
[2019-09-21 12:35] LABS: EPITHELIAL CELLS 0-2; MUCOUS 1+; RBC 41-50 rbc/hpf (0-2)
[2019-09-21 12:36] LABS: BACTERIA 1+
[2019-09-21 21:59] LABS: ABG BASE EXCESS -2.3 mmol/L (-2.0-2.0); ARTERIAL BLOOD GAS PH 7.281 (7.35-7.45)
[2019-09-21 22:06] LABS: BUN 40 mg/dl (7-24); CHLORIDE 119 mmol/L (98-107); CREATININE 0.99 mg/dL (0.70-1.30); POTASSIUM 4.4 mmol/L (3.5-5.1); SODIUM 152 mmol/L (136-145)
[2019-09-22] VITALS (67 sets, daily range): BP systolic 70–118; BP diastolic 38–76
[2019-09-22 02:02] LABS: ABG BASE EXCESS -2.1 mmol/L (-2.0-2.0); ARTERIAL BLOOD GAS PH 7.255 (7.35-7.45)
[2019-09-22 05:43] LABS: ALBUMIN 2.4 gm/dl (3.1-4.5); ALKALINE PHOSPHATASE 85 U/L (45-117); BUN 42 mg/dl (7-24); CHLORIDE 117 mmol/L (98-107); CREATININE 1.05 mg/dL (0.70-1.30); LDH 370 U/L (87-241); SGOT/AST 38 IU/L (3-35); SGPT/ALT 37 U/L (12-78); SODIUM 149 mmol/L (136-145); TOTAL PROTEIN 5.7 gm/dL (6.4-8.2)
[2019-09-22 06:21] LABS: BASO % 0.2 % (0.0-1.0); EOS # 0.1 10*3/uL (0.0-0.4); EOS % 0.7 % (1.0-4.0); HEMATOCRIT 41.2 % (42.0-52.0); LYMPH # 1.3 10*3/uL (1.3-4.4); LYMPH % 15.2 % (27.0-41.0); MEAN CORPUSCULAR HGB 29.8 pg (27.0-31.0); MEAN CORPUSCULAR HGB CONC 29.6 g/dl (33.0-37.0); MEAN PLATELET VOLUME 10.4 fl (9.6-12.3); MONO # 0.4 10*3/uL (0.1-1.0); MONO % 4.6 % (3.0-9.0); NEUT # 6.7 10*3/uL (2.3-7.9); NEUT % 77.3 % (47.0-73.0); RED BLOOD COUNT 4.09 10*6/uL (4.50-5.90); RED CELL DISTRI WIDTH 14.6 % (0-14.5); WHITE BLOOD COUNT 8.7 10*3/uL (4.8-10.8)
[2019-09-22 06:25] LABS: MEAN CELL VOLUME 100.7 fl (80.0-94.0)
[2019-09-22 06:26] LABS: PLATELET COUNT AUTOMATED 230 10*3/uL (130-400)
[2019-09-22 08:36] LABS: ABG BASE EXCESS 0.9 mmol/L (-2.0-2.0); ARTERIAL BLOOD GAS PH 7.362 (7.35-7.45)
[2019-09-22 10:05] LABS: ABG BASE EXCESS 1.4 mmol/L (-2.0-2.0); ARTERIAL BLOOD GAS PH 7.398 (7.35-7.45)
[2019-09-22 14:28] LABS: ABG BASE EXCESS 2.7 mmol/L (-2.0-2.0); ARTERIAL BLOOD GAS PH 7.353 (7.35-7.45)
[2019-09-23] VITALS (13 sets, daily range): BP systolic 109–141; BP diastolic 52–78
[2019-09-23 06:07] LABS: ALBUMIN 2.4 gm/dl (3.1-4.5); ALKALINE PHOSPHATASE 89 U/L (45-117); BUN 37 mg/dl (7-24); CHLORIDE 115 mmol/L (98-107); CREATININE 0.65 mg/dL (0.70-1.30); LDH 343 U/L (87-241); POTASSIUM 3.8 mmol/L (3.5-5.1); SGOT/AST 44 IU/L (3-35); SGPT/ALT 38 U/L (12-78); SODIUM 149 mmol/L (136-145); TOTAL PROTEIN 5.7 gm/dL (6.4-8.2)
[2019-09-23 06:43] LABS: BASO % 0.1 % (0.0-1.0); EOS % 0.3 % (1.0-4.0); HEMATOCRIT 36.7 % (42.0-52.0); MEAN CELL VOLUME 97.9 fl (80.0-94.0); MEAN CORPUSCULAR HGB 30.4 pg (27.0-31.0); MEAN CORPUSCULAR HGB CONC 31.1 g/dl (33.0-37.0); MEAN PLATELET VOLUME 10.8 fl (9.6-12.3); MONO # 0.4 10*3/uL (0.1-1.0); MONO % 5.6 % (3.0-9.0); NEUT # 5.7 10*3/uL (2.3-7.9); NEUT % 78.4 % (47.0-73.0); NUCLEATED RED BLOOD CELL 0.4 % (0.0-0.0); RED BLOOD COUNT 3.75 10*6/uL (4.50-5.90); RED CELL DISTRI WIDTH 14.4 % (0-14.5); WHITE BLOOD COUNT 7.3 10*3/uL (4.8-10.8)
[2019-09-23 06:45] LABS: PLATELET COUNT AUTOMATED 158 10*3/uL (130-400)
[2019-09-23 08:27] LABS: ABG BASE EXCESS 3.4 mmol/L (-2.0-2.0); ARTERIAL BLOOD GAS PH 7.384 (7.35-7.45)
[2019-09-24] VITALS (12 sets, daily range): BP systolic 108–168; BP diastolic 56–86
[2019-09-24 06:30] LABS: HEMATOCRIT 33.8 % (42.0-52.0); MEAN CELL VOLUME 97.4 fl (80.0-94.0); MEAN CORPUSCULAR HGB 30.5 pg (27.0-31.0); MEAN CORPUSCULAR HGB CONC 31.4 g/dl (33.0-37.0); MEAN PLATELET VOLUME 11.2 fl (9.6-12.3); NUCLEATED RED BLOOD CELL 0.4 % (0.0-0.0); PLATELET COUNT AUTOMATED 143 10*3/uL (130-400); RED BLOOD COUNT 3.47 10*6/uL (4.50-5.90); RED CELL DISTRI WIDTH 14.5 % (0-14.5); WHITE BLOOD COUNT 7.8 10*3/uL (4.8-10.8)
[2019-09-24 06:39] LABS: ALBUMIN 2.6 gm/dl (3.1-4.5); ALKALINE PHOSPHATASE 106 U/L (45-117); BUN 36 mg/dl (7-24); CHLORIDE 111 mmol/L (98-107); CREATININE 0.51 mg/dL (0.70-1.30); LDH 312 U/L (87-241); POTASSIUM 3.9 mmol/L (3.5-5.1); SGOT/AST 71 IU/L (3-35); SGPT/ALT 58 U/L (12-78); SODIUM 147 mmol/L (136-145); TOTAL PROTEIN 5.6 gm/dL (6.4-8.2)
[2019-09-24 07:29] LABS: PLATELET SUFFICIENCY NORMAL (NORMAL); TOTAL CELLS COUNTED 100 #CELLS
[2019-09-24 09:08] LABS: ARTERIAL BLOOD GAS PH 7.402 (7.35-7.45)
[2019-09-24 16:20] LABS: ABG BASE EXCESS 8.2 mmol/L (-2.0-2.0); ARTERIAL BLOOD GAS PH 7.39 (7.35-7.45)
[2019-09-25] VITALS (12 sets, daily range): BP systolic 98–159; BP diastolic 48–69
[2019-09-25 06:13] LABS: ABG BASE EXCESS 10.9 mmol/L (-2.0-2.0); ARTERIAL BLOOD GAS PH 7.415 (7.35-7.45)
[2019-09-25 06:14] LABS: BASO % 0.1 % (0.0-1.0); EOS # 0.1 10*3/uL (0.0-0.4); EOS % 1.1 % (1.0-4.0); HEMATOCRIT 30.8 % (42.0-52.0); LYMPH # 1.1 10*3/uL (1.3-4.4); LYMPH % 14.5 % (27.0-41.0); MEAN CELL VOLUME 98.4 fl (80.0-94.0); MEAN CORPUSCULAR HGB 30.4 pg (27.0-31.0); MEAN CORPUSCULAR HGB CONC 30.8 g/dl (33.0-37.0); MEAN PLATELET VOLUME 11.1 fl (9.6-12.3); MONO # 0.3 10*3/uL (0.1-1.0); MONO % 4.2 % (3.0-9.0); NEUT # 5.9 10*3/uL (2.3-7.9); NEUT % 77.7 % (47.0-73.0); NUCLEATED RED BLOOD CELL 0.4 % (0.0-0.0); PLATELET COUNT AUTOMATED 115 10*3/uL (130-400); RED BLOOD COUNT 3.13 10*6/uL (4.50-5.90); RED CELL DISTRI WIDTH 14.6 % (0-14.5); WHITE BLOOD COUNT 7.6 10*3/uL (4.8-10.8)
[2019-09-25 06:41] LABS: ALKALINE PHOSPHATASE 99 U/L (45-117); BUN 36 mg/dl (7-24); CHLORIDE 108 mmol/L (98-107); CREATININE 0.68 mg/dL (0.70-1.30); LDH 308 U/L (87-241); POTASSIUM 4.3 mmol/L (3.5-5.1); SGOT/AST 90 IU/L (3-35); SGPT/ALT 73 U/L (12-78); SODIUM 147 mmol/L (136-145); TOTAL PROTEIN 5.6 gm/dL (6.4-8.2)
[2019-09-25 14:54] LABS: ABG BASE EXCESS 13.2 mmol/L (-2.0-2.0); ARTERIAL BLOOD GAS PH 7.469 (7.35-7.45)
[2019-09-25 16:23] LABS: ABG BASE EXCESS 12.9 mmol/L (-2.0-2.0); ARTERIAL BLOOD GAS PH 7.502 (7.35-7.45)
[2019-09-26] VITALS (13 sets, daily range): BP systolic 87–142; BP diastolic 50–70
[2019-09-26 06:15] LABS: ALBUMIN 3.2 gm/dl (3.1-4.5); BUN 36 mg/dl (7-24); CHLORIDE 106 mmol/L (98-107); CREATININE 0.64 mg/dL (0.70-1.30); LDH 259 U/L (87-241); POTASSIUM 4.2 mmol/L (3.5-5.1); SGOT/AST 66 IU/L (3-35); SGPT/ALT 63 U/L (12-78); SODIUM 146 mmol/L (136-145)
[2019-09-26 06:17] LABS: ALKALINE PHOSPHATASE 90 U/L (45-117); TOTAL PROTEIN 5.4 gm/dL (6.4-8.2)
[2019-09-26 06:25] LABS: BASO % 0.1 % (0.0-1.0); EOS # 0.1 10*3/uL (0.0-0.4); EOS % 0.8 % (1.0-4.0); HEMATOCRIT 26.2 % (42.0-52.0); LYMPH # 1.2 10*3/uL (1.3-4.4); LYMPH % 16.2 % (27.0-41.0); MEAN CORPUSCULAR HGB 30.4 pg (27.0-31.0); MEAN CORPUSCULAR HGB CONC 31.3 g/dl (33.0-37.0); MEAN PLATELET VOLUME 11.5 fl (9.6-12.3); MONO # 0.2 10*3/uL (0.1-1.0); MONO % 2.5 % (3.0-9.0); NEUT # 5.7 10*3/uL (2.3-7.9); NEUT % 78.6 % (47.0-73.0); NUCLEATED RED BLOOD CELL 0.1 10*3/uL (0.0-0.0); NUCLEATED RED BLOOD CELL 0.7 % (0.0-0.0); PLATELET COUNT AUTOMATED 101 10*3/uL (130-400); RED CELL DISTRI WIDTH 14.6 % (0-14.5); WHITE BLOOD COUNT 7.3 10*3/uL (4.8-10.8)
[2019-09-26 08:22] LABS: ABG BASE EXCESS 14.2 mmol/L (-2.0-2.0); ARTERIAL BLOOD GAS PH 7.544 (7.35-7.45)
[2019-09-26 09:44] LABS: ABG BASE EXCESS 12.3 mmol/L (-2.0-2.0); ARTERIAL BLOOD GAS PH 7.517 (7.35-7.45)
[2019-09-26 13:35] LABS: ABG BASE EXCESS 14.4 mmol/L (-2.0-2.0); ARTERIAL BLOOD GAS PH 7.522 (7.35-7.45)
[2019-09-26 16:07] LABS: ABG BASE EXCESS 13.4 mmol/L (-2.0-2.0); ARTERIAL BLOOD GAS PH 7.502 (7.35-7.45)
[2019-09-27] VITALS (12 sets, daily range): BP systolic 106–134; BP diastolic 46–73
[2019-09-27 06:19] LABS: ALBUMIN 3.4 gm/dl (3.1-4.5); ALKALINE PHOSPHATASE 81 U/L (45-117); BUN 36 mg/dl (7-24); CHLORIDE 107 mmol/L (98-107); CREATININE 0.63 mg/dL (0.70-1.30); LDH 328 U/L (87-241); POTASSIUM 3.8 mmol/L (3.5-5.1); SGOT/AST 60 IU/L (3-35); SGPT/ALT 52 U/L (12-78); SODIUM 148 mmol/L (136-145); TOTAL PROTEIN 5.6 gm/dL (6.4-8.2)
[2019-09-27 06:26] LABS: BASO % 0.2 % (0.0-1.0); EOS % 0.3 % (1.0-4.0); HEMATOCRIT 25.4 % (42.0-52.0); MEAN CELL VOLUME 98.4 fl (80.0-94.0); MEAN CORPUSCULAR HGB 30.6 pg (27.0-31.0); MEAN CORPUSCULAR HGB CONC 31.1 g/dl (33.0-37.0); MEAN PLATELET VOLUME 11.8 fl (9.6-12.3); MONO # 0.3 10*3/uL (0.1-1.0); MONO % 4.7 % (3.0-9.0); NEUT # 4.3 10*3/uL (2.3-7.9); NEUT % 75.2 % (47.0-73.0); NUCLEATED RED BLOOD CELL 0.1 10*3/uL (0.0-0.0); NUCLEATED RED BLOOD CELL 0.9 % (0.0-0.0); PLATELET COUNT AUTOMATED 84 10*3/uL (130-400); RED BLOOD COUNT 2.58 10*6/uL (4.50-5.90); RED CELL DISTRI WIDTH 14.9 % (0-14.5); WHITE BLOOD COUNT 5.7 10*3/uL (4.8-10.8)
[2019-09-27 08:18] LABS: ABG BASE EXCESS 10.9 mmol/L (-2.0-2.0); ARTERIAL BLOOD GAS PH 7.467 (7.35-7.45)
[2019-09-27 17:29] LABS: ARTERIAL BLOOD GAS PH 7.511 (7.35-7.45)
[2019-09-28] VITALS (15 sets, daily range): BP systolic 83–123; BP diastolic 43–66
[2019-09-28 04:33] LABS: ALBUMIN 3.6 gm/dl (3.1-4.5); ALKALINE PHOSPHATASE 83 U/L (45-117); BUN 31 mg/dl (7-24); CHLORIDE 110 mmol/L (98-107); CREATININE 0.68 mg/dL (0.70-1.30); LDH 287 U/L (87-241); POTASSIUM 4.1 mmol/L (3.5-5.1); SGOT/AST 55 IU/L (3-35); SGPT/ALT 53 U/L (12-78); SODIUM 147 mmol/L (136-145)
[2019-09-28 06:16] LABS: EOS % 0.4 % (1.0-4.0); HEMATOCRIT 24.5 % (42.0-52.0); LYMPH # 1.4 10*3/uL (1.3-4.4); LYMPH % 26.1 % (27.0-41.0); MEAN CELL VOLUME 98.4 fl (80.0-94.0); MEAN CORPUSCULAR HGB 30.1 pg (27.0-31.0); MEAN CORPUSCULAR HGB CONC 30.6 g/dl (33.0-37.0); MEAN PLATELET VOLUME 12.8 fl (9.6-12.3); MONO # 0.2 10*3/uL (0.1-1.0); MONO % 2.9 % (3.0-9.0); NEUT # 3.5 10*3/uL (2.3-7.9); NEUT % 67.9 % (47.0-73.0); NUCLEATED RED BLOOD CELL 0.1 10*3/uL (0.0-0.0); PLATELET COUNT AUTOMATED 86 10*3/uL (130-400); RED BLOOD COUNT 2.49 10*6/uL (4.50-5.90); RED CELL DISTRI WIDTH 15.2 % (0-14.5); WHITE BLOOD COUNT 5.2 10*3/uL (4.8-10.8)
[2019-09-28 07:45] LABS: ABG BASE EXCESS 8.9 mmol/L (-2.0-2.0); ARTERIAL BLOOD GAS PH 7.469 (7.35-7.45)
[2019-09-28 12:46] LABS: ABG BASE EXCESS 8.9 mmol/L (-2.0-2.0); ARTERIAL BLOOD GAS PH 7.481 (7.35-7.45)
[2019-09-28 15:51] LABS: ARTERIAL BLOOD GAS PH 7.487 (7.35-7.45)
[2019-09-28 18:01] LABS: ABG BASE EXCESS 6.1 mmol/L (-2.0-2.0); ARTERIAL BLOOD GAS PH 7.469 (7.35-7.45)
[2019-09-28 20:26] LABS: ABG BASE EXCESS 6.2 mmol/L (-2.0-2.0); ARTERIAL BLOOD GAS PH 7.477 (7.35-7.45)
[2019-09-29] VITALS (13 sets, daily range): BP systolic 96–131; BP diastolic 52–84
[2019-09-29 06:01] LABS: ALBUMIN 4.1 gm/dl (3.1-4.5); ALKALINE PHOSPHATASE 88 U/L (45-117); BUN 33 mg/dl (7-24); CHLORIDE 108 mmol/L (98-107); CREATININE 0.68 mg/dL (0.70-1.30); LDH 279 U/L (87-241); POTASSIUM 3.9 mmol/L (3.5-5.1); SGOT/AST 54 IU/L (3-35); SGPT/ALT 57 U/L (12-78); SODIUM 143 mmol/L (136-145); TOTAL PROTEIN 6.5 gm/dL (6.4-8.2)
[2019-09-29 06:29] LABS: EOS % 0.6 % (1.0-4.0); HEMATOCRIT 25.3 % (42.0-52.0); LYMPH # 1.2 10*3/uL (1.3-4.4); LYMPH % 22.6 % (27.0-41.0); MEAN CORPUSCULAR HGB 31.2 pg (27.0-31.0); MEAN CORPUSCULAR HGB CONC 31.2 g/dl (33.0-37.0); MEAN PLATELET VOLUME 11.9 fl (9.6-12.3); MONO # 0.4 10*3/uL (0.1-1.0); MONO % 6.8 % (3.0-9.0); NEUT # 3.6 10*3/uL (2.3-7.9); NEUT % 67.7 % (47.0-73.0); NUCLEATED RED BLOOD CELL 0.6 % (0.0-0.0); PLATELET COUNT AUTOMATED 93 10*3/uL (130-400); RED BLOOD COUNT 2.53 10*6/uL (4.50-5.90); RED CELL DISTRI WIDTH 15.3 % (0-14.5); WHITE BLOOD COUNT 5.3 10*3/uL (4.8-10.8)
[2019-09-29 07:31] LABS: ABG BASE EXCESS 6.7 mmol/L (-2.0-2.0); ARTERIAL BLOOD GAS PH 7.456 (7.35-7.45)
[2019-09-29 10:54] LABS: ABG BASE EXCESS 5.2 mmol/L (-2.0-2.0); ARTERIAL BLOOD GAS PH 7.478 (7.35-7.45)
[2019-09-29 13:08] LABS: ACID FAST SPEC PROCESSING Concentration (.)
[2019-09-29 15:57] LABS: ABG BASE EXCESS 6.4 mmol/L (-2.0-2.0); ARTERIAL BLOOD GAS PH 7.463 (7.35-7.45)
[2019-09-30] VITALS (10 sets, daily range): BP systolic 106–132; BP diastolic 57–74
[2019-09-30 06:24] LABS: ALBUMIN 4.6 gm/dl (3.1-4.5); ALKALINE PHOSPHATASE 114 U/L (45-117); BUN 35 mg/dl (7-24); CHLORIDE 107 mmol/L (98-107); CREATININE 0.68 mg/dL (0.70-1.30); LDH 335 U/L (87-241); POTASSIUM 3.7 mmol/L (3.5-5.1); SGOT/AST 71 IU/L (3-35); SGPT/ALT 70 U/L (12-78); SODIUM 141 mmol/L (136-145); TOTAL PROTEIN 7.6 gm/dL (6.4-8.2)
[2019-09-30 06:38] LABS: BASO % 0.1 % (0.0-1.0); EOS # 0.1 10*3/uL (0.0-0.4); EOS % 0.7 % (1.0-4.0); HEMATOCRIT 27.1 % (42.0-52.0); LYMPH # 1.5 10*3/uL (1.3-4.4); LYMPH % 22.6 % (27.0-41.0); MEAN CORPUSCULAR HGB 30.7 pg (27.0-31.0); MEAN CORPUSCULAR HGB CONC 32.5 g/dl (33.0-37.0); MEAN PLATELET VOLUME 11.9 fl (9.6-12.3); MONO # 0.5 10*3/uL (0.1-1.0); NEUT # 4.5 10*3/uL (2.3-7.9); NEUT % 66.7 % (47.0-73.0); NUCLEATED RED BLOOD CELL 0.6 % (0.0-0.0); PLATELET COUNT AUTOMATED 119 10*3/uL (130-400); RED BLOOD COUNT 2.87 10*6/uL (4.50-5.90); RED CELL DISTRI WIDTH 15.2 % (0-14.5); WHITE BLOOD COUNT 6.7 10*3/uL (4.8-10.8)
[2019-09-30 06:42] LABS: MEAN CELL VOLUME 94.4 fl (80.0-94.0)
[2019-09-30 08:49] LABS: ABG BASE EXCESS 4.1 mmol/L (-2.0-2.0); ARTERIAL BLOOD GAS PH 7.495 (7.35-7.45)
[2019-09-30 17:06] LABS: HLA CLASS 1 ANTIBODY Negative (Negative); IIb/IIIa ANTIBODY Negative (Negative); Ia/IIa ANTIBODY Negative (Negative); Ib/IX ANTIBODY Negative (Negative)
[2019-10-01] VITALS: BP 108/71
[2019-10-01 04:00] VITALS: BP 132/80
[2019-10-01 06:05] LABS: BASO % 0.1 % (0.0-1.0); EOS % 0.3 % (1.0-4.0); HEMATOCRIT 30.4 % (42.0-52.0); LYMPH # 1.5 10*3/uL (1.3-4.4); MEAN CELL VOLUME 93.8 fl (80.0-94.0); MEAN CORPUSCULAR HGB 30.6 pg (27.0-31.0); MEAN CORPUSCULAR HGB CONC 32.6 g/dl (33.0-37.0); MEAN PLATELET VOLUME 11.1 fl (9.6-12.3); MONO # 0.9 10*3/uL (0.1-1.0); MONO % 9.1 % (3.0-9.0); NEUT # 7.4 10*3/uL (2.3-7.9); NEUT % 74.6 % (47.0-73.0); NUCLEATED RED BLOOD CELL 0.3 % (0.0-0.0); PLATELET COUNT AUTOMATED 143 10*3/uL (130-400); RED BLOOD COUNT 3.24 10*6/uL (4.50-5.90); RED CELL DISTRI WIDTH 15.4 % (0-14.5); WHITE BLOOD COUNT 9.9 10*3/uL (4.8-10.8)
[2019-10-01 06:06] LABS: ALBUMIN 4.3 gm/dl (3.1-4.5); ALKALINE PHOSPHATASE 143 U/L (45-117); BUN 32 mg/dl (7-24); CHLORIDE 106 mmol/L (98-107); CREATININE 0.68 mg/dL (0.70-1.30); LDH 366 U/L (87-241); POTASSIUM 3.7 mmol/L (3.5-5.1); SGOT/AST 75 IU/L (3-35); SGPT/ALT 104 U/L (12-78); SODIUM 138 mmol/L (136-145); TOTAL PROTEIN 7.5 gm/dL (6.4-8.2)
[2019-10-01 08:00] VITALS: BP 130/85
[2019-10-01 08:27] LABS: ARTERIAL BLOOD GAS PH 7.462 (7.35-7.45)
[2019-10-01 12:00] VITALS: BP 114/76
[2019-10-01 16:00] VITALS: BP 114/76
[2019-10-01 20:00] VITALS: BP 126/76
[2019-10-02] VITALS: BP 126/76
[2019-10-02 04:00] VITALS: BP 111/75
[2019-10-02 06:03] LABS: ALBUMIN 3.8 gm/dl (3.1-4.5); BUN 26 mg/dl (7-24); CHLORIDE 105 mmol/L (98-107); CREATININE 0.58 mg/dL (0.70-1.30); POTASSIUM 3.5 mmol/L (3.5-5.1); SGOT/AST 58 IU/L (3-35); SGPT/ALT 88 U/L (12-78); SODIUM 138 mmol/L (136-145)
[2019-10-02 06:06] LABS: ALKALINE PHOSPHATASE 149 U/L (45-117); TOTAL PROTEIN 6.8 gm/dL (6.4-8.2)
[2019-10-02 06:13] LABS: BASO % 0.1 % (0.0-1.0); EOS # 0.1 10*3/uL (0.0-0.4); EOS % 1.1 % (1.0-4.0); HEMATOCRIT 28.5 % (42.0-52.0); LYMPH # 1.8 10*3/uL (1.3-4.4); LYMPH % 24.1 % (27.0-41.0); MEAN CORPUSCULAR HGB CONC 31.6 g/dl (33.0-37.0); MEAN PLATELET VOLUME 10.9 fl (9.6-12.3); MONO # 0.7 10*3/uL (0.1-1.0); NEUT # 4.8 10*3/uL (2.3-7.9); NEUT % 64.7 % (47.0-73.0); PLATELET COUNT AUTOMATED 116 10*3/uL (130-400); RED CELL DISTRI WIDTH 15.6 % (0-14.5); WHITE BLOOD COUNT 7.3 10*3/uL (4.8-10.8)
[2019-10-02 08:00] VITALS: BP 107/69
[2019-10-02 08:39] LABS: ABG BASE EXCESS 1.3 mmol/L (-2.0-2.0); ARTERIAL BLOOD GAS PH 7.423 (7.35-7.45)
[2019-10-02 12:00] VITALS: BP 107/71
[2019-10-02 16:00] VITALS: BP 110/72
[2019-10-02 20:00] VITALS: BP 111/75
[2019-10-03] VITALS: BP 109/74
[2019-10-03 04:00] VITALS: BP 104/72
[2019-10-03 06:43] LABS: BASO % 0.2 % (0.0-1.0); EOS # 0.1 10*3/uL (0.0-0.4); EOS % 0.9 % (1.0-4.0); HEMATOCRIT 29.7 % (42.0-52.0); LYMPH # 1.5 10*3/uL (1.3-4.4); LYMPH % 16.7 % (27.0-41.0); MEAN CELL VOLUME 93.4 fl (80.0-94.0); MEAN CORPUSCULAR HGB 29.9 pg (27.0-31.0); MEAN PLATELET VOLUME 10.7 fl (9.6-12.3); MONO # 0.9 10*3/uL (0.1-1.0); MONO % 9.9 % (3.0-9.0); NEUT # 6.5 10*3/uL (2.3-7.9); NEUT % 71.3 % (47.0-73.0); PLATELET COUNT AUTOMATED 128 10*3/uL (130-400); RED BLOOD COUNT 3.18 10*6/uL (4.50-5.90); RED CELL DISTRI WIDTH 15.4 % (0-14.5); WHITE BLOOD COUNT 9.1 10*3/uL (4.8-10.8)
[2019-10-03 06:57] LABS: ALBUMIN 3.7 gm/dl (3.1-4.5); ALKALINE PHOSPHATASE 141 U/L (45-117); BUN 21 mg/dl (7-24); CHLORIDE 105 mmol/L (98-107); CREATININE 0.58 mg/dL (0.70-1.30); POTASSIUM 3.7 mmol/L (3.5-5.1); SGOT/AST 45 IU/L (3-35); SGPT/ALT 83 U/L (12-78); SODIUM 138 mmol/L (136-145)
[2019-10-03 08:00] VITALS: BP 109/75
[2019-10-03 11:19] VITALS: BP 113/76
[2019-10-03 16:00] VITALS: BP 121/70
[2019-10-03 20:00] VITALS: BP 113/76
[2019-10-04] VITALS: BP 112/69
[2019-10-04 04:00] VITALS: BP 112/69
[2019-10-04 06:43] LABS: BASO % 0.2 % (0.0-1.0); EOS # 0.1 10*3/uL (0.0-0.4); EOS % 1.7 % (1.0-4.0); HEMATOCRIT 29.3 % (42.0-52.0); LYMPH # 1.7 10*3/uL (1.3-4.4); LYMPH % 20.8 % (27.0-41.0); MEAN CELL VOLUME 95.8 fl (80.0-94.0); MEAN CORPUSCULAR HGB 30.7 pg (27.0-31.0); MEAN CORPUSCULAR HGB CONC 32.1 g/dl (33.0-37.0); MEAN PLATELET VOLUME 10.7 fl (9.6-12.3); MONO # 0.7 10*3/uL (0.1-1.0); MONO % 8.1 % (3.0-9.0); NEUT # 5.4 10*3/uL (2.3-7.9); NEUT % 67.6 % (47.0-73.0); PLATELET COUNT AUTOMATED 119 10*3/uL (130-400); RED BLOOD COUNT 3.06 10*6/uL (4.50-5.90); RED CELL DISTRI WIDTH 15.6 % (0-14.5)
[2019-10-04 06:53] LABS: CHOLESTEROL 83 mg/dL (<200); HDL CHOLESTEROL 31 mg/dl (40-60); LDL CHOLESTEROL 32 mg/dL (9-159); TRIGLYCERIDES 102 mg/dl (<150); VLDL CHOLESTEROL 20 mg/dL (6-40)
[2019-10-04 06:53] LABS: ALBUMIN 3.4 gm/dl (3.1-4.5); ALKALINE PHOSPHATASE 165 U/L (45-117); BUN 22 mg/dl (7-24); CHLORIDE 102 mmol/L (98-107); CREATININE 0.61 mg/dL (0.70-1.30); POTASSIUM 3.6 mmol/L (3.5-5.1); SGOT/AST 60 IU/L (3-35); SGPT/ALT 91 U/L (12-78); SODIUM 135 mmol/L (136-145); TOTAL PROTEIN 6.7 gm/dL (6.4-8.2)
[2019-10-04 08:00] VITALS: BP 106/65
[2019-10-04 12:00] VITALS: BP 103/62
[2019-10-04 16:00] VITALS: BP 133/73
[2019-10-04 20:00] VITALS: BP 98/60
[2019-10-05] VITALS: BP 104/69
[2019-10-05 06:51] LABS: EOS % 0.5 % (1.0-4.0); HEMATOCRIT 27.8 % (42.0-52.0); LYMPH % 17.2 % (27.0-41.0); MEAN CELL VOLUME 93.3 fl (80.0-94.0); MEAN CORPUSCULAR HGB 30.5 pg (27.0-31.0); MEAN CORPUSCULAR HGB CONC 32.7 g/dl (33.0-37.0); MEAN PLATELET VOLUME 10.2 fl (9.6-12.3); MONO # 0.6 10*3/uL (0.1-1.0); MONO % 11.4 % (3.0-9.0); NEUT # 3.9 10*3/uL (2.3-7.9); PLATELET COUNT AUTOMATED 91 10*3/uL (130-400); RED BLOOD COUNT 2.98 10*6/uL (4.50-5.90); RED CELL DISTRI WIDTH 15.6 % (0-14.5); WHITE BLOOD COUNT 5.5 10*3/uL (4.8-10.8)
[2019-10-05 07:08] LABS: ALBUMIN 3.2 gm/dl (3.1-4.5); ALKALINE PHOSPHATASE 156 U/L (45-117); BUN 16 mg/dl (7-24); CHLORIDE 103 mmol/L (98-107); CHOLESTEROL 86 mg/dL (<200); CREATININE 0.57 mg/dL (0.70-1.30); HDL CHOLESTEROL 34 mg/dl (40-60); LDH 243 U/L (87-241); LDL CHOLESTEROL 36 mg/dL (9-159); POTASSIUM 3.4 mmol/L (3.5-5.1); SGOT/AST 46 IU/L (3-35); SGPT/ALT 80 U/L (12-78); SODIUM 134 mmol/L (136-145); TOTAL PROTEIN 6.6 gm/dL (6.4-8.2); TRIGLYCERIDES 81 mg/dl (<150); VLDL CHOLESTEROL 16 mg/dL (6-40)
[2019-10-05 08:00] VITALS: BP 101/71
[2019-10-05 12:00] VITALS: BP 94/66
[2019-10-05 16:00] VITALS: BP 107/64
[2019-10-05] MEDS ORDERED: PANTOPRAZOLE SO40 MG PO (16:04)
[2019-10-05] MEDS ORDERED: KLONOPIN2 M1 PO (16:04)
[2019-10-05] MEDS ORDERED: HUMALOG100 UNIT/1 SC (16:04)
[2019-10-05] MEDS ORDERED: HYDROCODONE-AC1 EACH PO (16:04)
[2019-10-05] MEDS ORDERED: Carafate1 GM PO (16:04)
[2019-10-05] MEDS ORDERED: ELIQUIS5 M1 PO (16:04)
[2019-10-05] MEDS ORDERED: TAMSULOSIN HCL0.4 MG PO (16:04)
[2019-10-05] MEDS ORDERED: LOPRESSOR25 MG PO (16:04)
[2019-10-05] MEDS ORDERED: LACTULOSE20 GM/30 M PO (16:04)
[2019-10-05] MEDS ORDERED: LANTUS SOL100 UNIT/1 SC (16:04)
[2019-10-05 20:00] VITALS: BP 97/60
[2019-10-06] VITALS: BP 98/62
[2019-10-06 08:00] VITALS: BP 97/62
[2019-10-06 10:04] LABS: ABG BASE EXCESS 0.1 mmol/L (-2.0-2.0); ARTERIAL BLOOD GAS PH 7.476 (7.35-7.45)
[2019-10-06 12:00] VITALS: BP 113/74
[2019-10-06] MEDS ORDERED: LOPRESSOR25 MG PO (12:22)
[2019-10-06 13:49] LABS: BASO % 0.2 % (0.0-1.0); EOS # 0.1 10*3/uL (0.0-0.4); EOS % 1.7 % (1.0-4.0); HEMATOCRIT 26.1 % (42.0-52.0); LYMPH % 16.7 % (27.0-41.0); MEAN CELL VOLUME 92.6 fl (80.0-94.0); MEAN CORPUSCULAR HGB 30.5 pg (27.0-31.0); MEAN PLATELET VOLUME 11.6 fl (9.6-12.3); MONO # 0.6 10*3/uL (0.1-1.0); MONO % 9.1 % (3.0-9.0); NEUT # 4.4 10*3/uL (2.3-7.9); NEUT % 71.6 % (47.0-73.0); PLATELET COUNT AUTOMATED 103 10*3/uL (130-400); RED BLOOD COUNT 2.82 10*6/uL (4.50-5.90); RED CELL DISTRI WIDTH 15.1 % (0-14.5); WHITE BLOOD COUNT 6.1 10*3/uL (4.8-10.8)
[2019-10-06 14:20] LABS: ALBUMIN 3.1 gm/dl (3.1-4.5); BUN 16 mg/dl (7-24); CHLORIDE 99 mmol/L (98-107); POTASSIUM 3.2 mmol/L (3.5-5.1); SODIUM 132 mmol/L (136-145)
[2019-10-06 14:23] LABS: ALKALINE PHOSPHATASE 193 U/L (45-117); CREATININE 0.78 mg/dL (0.70-1.30); SGOT/AST 65 IU/L (3-35); SGPT/ALT 90 U/L (12-78); TOTAL PROTEIN 6.6 gm/dL (6.4-8.2)
== END 2019-10-06 17:09 | disposition other institution (70) | DRG 207 ==
LOC: ED 10:45 → 4E 17:15 → EDHOLD 17:15 → 4E 17:52
PROVIDERS: Emergency Medicine; Internal Medicine; Internal Medicine Critical Care Medicine; Student in an Organized Health Care Education/Training Program; ADMIT Family Medicine
PROC: 4A133J1 Monitoring of Arterial Pulse, Peripheral, Percutaneous Approach (ICD-10-PCS; principal; 2019-09-15)
PROC: 5A1955Z Respiratory Ventilation, Greater than 96 Consecutive Hours (ICD-10-PCS; principal; 2019-09-15)
PROC: 0BH18EZ Insertion of Endotracheal Airway into Trachea, Via Natural or Artificial Opening Endoscopic (ICD-10-PCS; principal; 2019-09-15)
PROC: 02HV33Z Insertion of Infusion Device into Superior Vena Cava, Percutaneous Approach (ICD-10-PCS; principal; 2019-09-15)
PROC: 03HY32Z Insertion of Monitoring Device into Upper Artery, Percutaneous Approach (ICD-10-PCS; principal; 2019-09-15)
PROC: 4A133B1 Monitoring of Arterial Pressure, Peripheral, Percutaneous Approach (ICD-10-PCS; principal; 2019-09-15)
PROC: B548ZZA Ultrasonography of Superior Vena Cava, Guidance (ICD-10-PCS; principal; 2019-09-15)
PROC: 0W9B30Z Drainage of Left Pleural Cavity with Drainage Device, Percutaneous Approach (ICD-10-PCS; 2019-09-18)
PROC: 0B21XEZ Change Endotracheal Airway in Trachea, External Approach (ICD-10-PCS; 2019-09-25)
PROC: 0B9B8ZZ Drainage of Left Lower Lobe Bronchus, Via Natural or Artificial Opening Endoscopic (ICD-10-PCS; 2019-09-28)
PROC: 0B938ZZ Drainage of Right Main Bronchus, Via Natural or Artificial Opening Endoscopic (ICD-10-PCS; 2019-09-28)
PROC: 0B948ZZ Drainage of Right Upper Lobe Bronchus, Via Natural or Artificial Opening Endoscopic (ICD-10-PCS; 2019-09-28)
PROC: 0B968ZZ Drainage of Right Lower Lobe Bronchus, Via Natural or Artificial Opening Endoscopic (ICD-10-PCS; 2019-09-28)
PROC: 0B988ZZ Drainage of Left Upper Lobe Bronchus, Via Natural or Artificial Opening Endoscopic (ICD-10-PCS; 2019-09-28)
PROC: 0B958ZZ Drainage of Right Middle Lobe Bronchus, Via Natural or Artificial Opening Endoscopic (ICD-10-PCS; 2019-09-28)
PROC: 0B918ZZ Drainage of Trachea, Via Natural or Artificial Opening Endoscopic (ICD-10-PCS; 2019-09-28)
PROC: 0B978ZZ Drainage of Left Main Bronchus, Via Natural or Artificial Opening Endoscopic (ICD-10-PCS; 2019-09-28)
PROC: 0B998ZZ Drainage of Lingula Bronchus, Via Natural or Artificial Opening Endoscopic (ICD-10-PCS; 2019-09-28)
PROC: 05HC33Z Insertion of Infusion Device into Left Basilic Vein, Percutaneous Approach (ICD-10-PCS; 2019-10-03)
PROC: B54NZZA Ultrasonography of Left Upper Extremity Veins, Guidance (ICD-10-PCS; 2019-10-03)
DX: U07.1 COVID-19 (principal); J96.01 Acute respiratory failure with hypoxia; J15.6 Pneumonia due to other Gram-negative bacteria; J12.89 Other viral pneumonia; J93.9 Pneumothorax, unspecified; K92.2 Gastrointestinal hemorrhage, unspecified; J44.0 Chronic obstructive pulmonary disease with (acute) lower respiratory infection; E44.1 Mild protein-calorie malnutrition; E87.0 Hyperosmolality and hypernatremia; E87.4 Mixed disorder of acid-base balance; N39.0 Urinary tract infection, site not specified; J95.851 Ventilator associated pneumonia; E78.5 Hyperlipidemia, unspecified; R03.0 Elevated blood-pressure reading, without diagnosis of hypertension; E11.65 Type 2 diabetes mellitus with hyperglycemia; K21.9 Gastro-esophageal reflux disease without esophagitis; D69.6 Thrombocytopenia, unspecified; D64.9 Anemia, unspecified; E83.41 Hypermagnesemia; E78.1 Pure hyperglyceridemia; I48.0 Paroxysmal atrial fibrillation; E87.8 Other disorders of electrolyte and fluid balance, not elsewhere classified; E78.6 Lipoprotein deficiency; R82.71 Bacteriuria; B96.1 Klebsiella pneumoniae [K. pneumoniae] as the cause of diseases classified elsewhere; Z90.49 Acquired absence of other specified parts of digestive tract; Z87.891 Personal history of nicotine dependence; E87.5 Hyperkalemia; Z68.24 Body mass index [BMI] 24.0-24.9, adult

== ENCOUNTER 2019-12-01 13:21 | Inpatient (IN) | payer MEDICARE ==
[~2019-12-01] VITALS: Ht 180.3 cm; Wt 80.3 kg
[~2019-12-01 13:21] MED LIST changes: +CYCLOBENZAPRINE10 MG PO; +Carafate1 GM PO; +ELIQUIS5 M1 PO; +FLUOXETINE HCL60 MG PO; +HUMALOG100 UNIT/1 SC; +LACTULOSE20 GM/30 M PO; +LANTUS SOL100 UNIT/1 SC; +LOPRESSOR25 MG PO; +ONDANSETRON HYDR4 M1 PO; +PANTOPRAZOLE SO40 MG PO; +TAMSULOSIN HCL0.4 MG PO; +VENLAFAXINE HYD75 MG PO
[2019-12-01 13:32] VITALS: BP 136/93
[2019-12-01 14:36] LABS: BASO # 0.1 10*3/uL (0.0-0.1); BASO % 0.4 % (0.0-1.0); EOS # 0.1 10*3/uL (0.0-0.4); EOS % 0.9 % (1.0-4.0); HEMATOCRIT 38.9 % (42.0-52.0); LYMPH # 1.9 10*3/uL (1.3-4.4); LYMPH % 16.2 % (27.0-41.0); MEAN CELL VOLUME 85.5 fl (80.0-94.0); MEAN CORPUSCULAR HGB CONC 31.6 g/dl (33.0-37.0); MONO # 1.1 10*3/uL (0.1-1.0); MONO % 9.5 % (3.0-9.0); NEUT # 8.2 10*3/uL (2.3-7.9); NEUT % 71.4 % (47.0-73.0); PLATELET COUNT AUTOMATED 275 10*3/uL (130-400); RED BLOOD COUNT 4.55 10*6/uL (4.50-5.90); WHITE BLOOD COUNT 11.5 10*3/uL (4.8-10.8)
[2019-12-01 14:40] VITALS: BP 124/79
[2019-12-01 14:47] LABS: ACT PARTIAL THROMBO TIME 28.2 SECONDS (20.0-32.1)
[2019-12-01 14:53] LABS: ALKALINE PHOSPHATASE 122 U/L (45-117); BUN 9 mg/dl (7-24); CHLORIDE 100 mmol/L (98-107); CREATININE 0.74 mg/dL (0.70-1.30); POTASSIUM 3.7 mmol/L (3.5-5.1); SGOT/AST 60 IU/L (3-35); SGPT/ALT 37 U/L (12-78); SODIUM 131 mmol/L (136-145); TOTAL PROTEIN 7.8 gm/dL (6.4-8.2)
[2019-12-01 14:55] LABS: TROPONIN I < 0.015 ng/ml (<0.045)
[2019-12-01 17:50] VITALS: BP 124/88
[2019-12-01 18:00] VITALS: BP 124/84
[2019-12-01] MEDS ORDERED: EFFEXOR XR150 M1 PO (18:12)
[2019-12-01] MEDS ORDERED: KLONOPIN1 M1 PO (18:13)
[2019-12-01] MEDS ORDERED: METOPROLOL25 MG PO (18:14)
[2019-12-01] MEDS ORDERED: VITAMIN D350 MC2 PO (18:14)
[2019-12-01] MEDS ORDERED: VISTARIL25 MG PO (18:15)
[2019-12-01] MEDS ORDERED: HYDROCODONE-AC1 EACH PO (18:16)
[2019-12-01] MEDS ORDERED: SEROQUEL XR150 MG PO (18:20)
[2019-12-01] MEDS ORDERED: BREO ELLIPTA 11 EACH INH (19:46)
[2019-12-01 20:00] VITALS: BP 104/65
[2019-12-02] VITALS: BP 111/68
[2019-12-02 08:00] VITALS: BP 131/81
[2019-12-02 12:00] VITALS: BP 109/82
[2019-12-02 16:00] VITALS: BP 107/60
[2019-12-02 20:06] VITALS: BP 113/69
[2019-12-03] VITALS: BP 120/75
[2019-12-03 08:00] VITALS: BP 118/78; BP 126/82
[2019-12-03 10:11] LABS: IMMUNOGLOBULIN M, QNT 227 mg/dL (20-172); RHEUMATOID ARTHRITIS FACTOR 11.7 IU/mL (0.0-13.9)
[2019-12-03 12:00] VITALS: BP 104/62
[2019-12-03 15:09] LABS: IGG SUBCLASS 1 429 mg/dL (248-810); IGG SUBCLASS 2 285 mg/dL (130-555); IGG SUBCLASS 3 124 mg/dL (15-102); IGG SUBCLASS 4 53 mg/dL (2-96); IMMUNOGLOBULIN G, QNT 921 mg/dL (603-1613)
[2019-12-03 16:00] VITALS: BP 121/76
[2019-12-03 20:00] VITALS: BP 134/82
[2019-12-04] VITALS: BP 128/84
[2019-12-04 06:24] LABS: BASO % 0.2 % (0.0-1.0); HEMATOCRIT 35.5 % (42.0-52.0); LYMPH # 0.7 10*3/uL (1.3-4.4); LYMPH % 11.9 % (27.0-41.0); MEAN CELL VOLUME 87.4 fl (80.0-94.0); MEAN CORPUSCULAR HGB 27.1 pg (27.0-31.0); MEAN PLATELET VOLUME 9.8 fl (9.6-12.3); MONO # 0.2 10*3/uL (0.1-1.0); MONO % 3.3 % (3.0-9.0); NEUT # 5.1 10*3/uL (2.3-7.9); NEUT % 83.6 % (47.0-73.0); PLATELET COUNT AUTOMATED 213 10*3/uL (130-400); RED BLOOD COUNT 4.06 10*6/uL (4.50-5.90); RED CELL DISTRI WIDTH 14.9 % (0-14.5); WHITE BLOOD COUNT 6.1 10*3/uL (4.8-10.8)
[2019-12-04 06:56] LABS: BUN 14 mg/dl (7-24); CHLORIDE 99 mmol/L (98-107); CREATININE 0.74 mg/dL (0.70-1.30); POTASSIUM 4.9 mmol/L (3.5-5.1); SGOT/AST 32 IU/L (3-35); SGPT/ALT 35 U/L (12-78); SODIUM 134 mmol/L (136-145); TOTAL PROTEIN 7.6 gm/dL (6.4-8.2)
[2019-12-04 07:00] LABS: ALKALINE PHOSPHATASE 163 U/L (45-117)
[2019-12-04 12:00] VITALS: BP 119/76
[2019-12-04 16:00] VITALS: BP 104/63
[2019-12-04 20:00] VITALS: BP 122/77
[2019-12-05] VITALS: BP 110/69
[2019-12-05 06:33] LABS: BASO % 0.1 % (0.0-1.0); HEMATOCRIT 30.6 % (42.0-52.0); LYMPH # 1.2 10*3/uL (1.3-4.4); LYMPH % 13.6 % (27.0-41.0); MEAN CELL VOLUME 86.7 fl (80.0-94.0); MEAN CORPUSCULAR HGB 27.5 pg (27.0-31.0); MEAN CORPUSCULAR HGB CONC 31.7 g/dl (33.0-37.0); MEAN PLATELET VOLUME 10.1 fl (9.6-12.3); MONO # 0.3 10*3/uL (0.1-1.0); MONO % 3.1 % (3.0-9.0); NEUT # 7.3 10*3/uL (2.3-7.9); NEUT % 82.2 % (47.0-73.0); PLATELET COUNT AUTOMATED 176 10*3/uL (130-400); RED BLOOD COUNT 3.53 10*6/uL (4.50-5.90); RED CELL DISTRI WIDTH 14.8 % (0-14.5); WHITE BLOOD COUNT 8.9 10*3/uL (4.8-10.8)
[2019-12-05 07:03] LABS: ALBUMIN 2.6 gm/dl (3.1-4.5); BUN 14 mg/dl (7-24); CHLORIDE 106 mmol/L (98-107); CREATININE 0.61 mg/dL (0.70-1.30); SGOT/AST 15 IU/L (3-35); SGPT/ALT 26 U/L (12-78); SODIUM 136 mmol/L (136-145); TOTAL PROTEIN 6.2 gm/dL (6.4-8.2)
[2019-12-05 07:04] LABS: ALKALINE PHOSPHATASE 96 U/L (45-117)
[2019-12-05 07:06] LABS: POTASSIUM 3.9 mmol/L (3.5-5.1)
[2019-12-05 08:00] VITALS: BP 124/76
[2019-12-05 12:00] VITALS: BP 107/62
[2019-12-05 15:06] LABS: ALDOLASE 9.5 U/L (3.3-10.3); ANGIOTENSIN-CONVERTING ENZYME 40 U/L (14-82)
[2019-12-05] MEDS ORDERED: FLUCONAZOLE100 MG PO (15:18)
[2019-12-05 16:00] VITALS: BP 115/74
[2019-12-05 17:10] LABS: ATYPICAL PANCA <1:20 titer (Neg:<1:20); CYTOPLASMIC (C-ANCA) <1:20 titer (Neg:<1:20)
[2019-12-06 00:09] LABS: IMMUNOGLOBULIN IgE 2562 IU/mL (6-495)
== END 2019-12-05 20:20 | disposition other institution (70) | DRG 154 ==
LOC: ED 13:21 → 4E 16:39 → EDHOLD 16:39 → 4E 17:22
PROVIDERS: Emergency Medicine; Internal Medicine Critical Care Medicine; ADMIT Internal Medicine; ATTEND Internal Medicine
DX: J38.7 Other diseases of larynx (principal); J96.20 Acute and chronic respiratory failure, unspecified whether with hypoxia or hypercapnia; J44.1 Chronic obstructive pulmonary disease with (acute) exacerbation; F33.1 Major depressive disorder, recurrent, moderate; I48.21 Permanent atrial fibrillation; I10 Essential (primary) hypertension; F41.1 Generalized anxiety disorder; E11.65 Type 2 diabetes mellitus with hyperglycemia; T38.0X5A Adverse effect of glucocorticoids and synthetic analogues, initial encounter; N40.1 Benign prostatic hyperplasia with lower urinary tract symptoms; R33.8 Other retention of urine; R62.7 Adult failure to thrive; K74.60 Unspecified cirrhosis of liver; E03.9 Hypothyroidism, unspecified; Y92.89 Other specified places as the place of occurrence of the external cause; Z79.01 Long term (current) use of anticoagulants; Z88.0 Allergy status to penicillin; Z91.041 Radiographic dye allergy status

== ENCOUNTER → 2020-04-11 | Outpatient (CLI) | payer MEDICARE ==
[~2020-04-11] MED LIST changes: +EFFEXOR XR150 M1 PO; +FLUCONAZOLE100 MG PO; +KLONOPIN1 M1 PO; +METOPROLOL25 MG PO; +SEROQUEL XR150 MG PO; +VISTARIL25 MG PO; +VITAMIN D350 MC2 PO
[2020-04-11 13:32] LABS: BASO % 0.6 % (0.0-1.0); EOS # 0.1 10*3/uL (0.0-0.4); HEMATOCRIT 39.5 % (42.0-52.0); LYMPH # 1.1 10*3/uL (1.3-4.4); MEAN CELL VOLUME 81.3 fl (80.0-94.0); MEAN CORPUSCULAR HGB 27.4 pg (27.0-31.0); MEAN CORPUSCULAR HGB CONC 33.7 g/dl (33.0-37.0); MONO # 0.4 10*3/uL (0.1-1.0); MONO % 7.6 % (3.0-9.0); NEUT # 3.7 10*3/uL (2.3-7.9); NEUT % 69.4 % (47.0-73.0); PLATELET COUNT AUTOMATED 133 10*3/uL (130-400); RED BLOOD COUNT 4.86 10*6/uL (4.50-5.90); RED CELL DISTRI WIDTH 13.4 % (0-14.5); WHITE BLOOD COUNT 5.3 10*3/uL (4.8-10.8)
[2020-04-11 14:00] LABS: ALBUMIN 3.5 gm/dl (3.1-4.5); ALKALINE PHOSPHATASE 192 U/L (45-117); BUN 4 mg/dl (7-24); CHLORIDE 99 mmol/L (98-107); CHOLESTEROL 190 mg/dL (<200); CREATININE 0.95 mg/dL (0.70-1.30); FREE T4 0.98 ng/dl (0.76-1.46); HDL CHOLESTEROL 47 mg/dl (40-60); LDL CHOLESTEROL 67 mg/dL (9-159); POTASSIUM 3.7 mmol/L (3.5-5.1); SGOT/AST 27 IU/L (3-35); SGPT/ALT 29 U/L (12-78); SODIUM 133 mmol/L (136-145); TOTAL PROTEIN 7.4 gm/dL (6.4-8.2); TRIGLYCERIDES 378 mg/dl (<150); VLDL CHOLESTEROL 76 mg/dL (6-40)
[2020-04-11 14:41] LABS: VITAMIN D, 25-HYDROXY 28.5 ng/mL (30-100)
== END | disposition home or self-care (01) ==
LOC: LAB 13:06
PROVIDERS: ATTEND Internal Medicine
DX: D52.9 Folate deficiency anemia, unspecified (principal); D51.9 Vitamin B12 deficiency anemia, unspecified; E55.9 Vitamin D deficiency, unspecified; E78.5 Hyperlipidemia, unspecified; E78.2 Mixed hyperlipidemia; I10 Essential (primary) hypertension; R53.81 Other malaise; N40.1 Benign prostatic hyperplasia with lower urinary tract symptoms; Z79.899 Other long term (current) drug therapy; Z79.891 Long term (current) use of opiate analgesic

== ENCOUNTER 2020-09-29 10:09 | Inpatient (IN) | payer MEDICARE ==
[~2020-09-29] VITALS: Ht 180.3 cm; Wt 68.7 kg
[2020-09-29 10:34] VITALS: BP 123/70
[2020-09-29 11:19] LABS: BASO # 0.1 10*3/uL (0.0-0.1); BASO % 0.6 % (0.0-1.0); EOS # 0.1 10*3/uL (0.0-0.4); EOS % 1.2 % (1.0-4.0); LYMPH # 2.4 10*3/uL (1.3-4.4); LYMPH % 28.1 % (27.0-41.0); MEAN CELL VOLUME 86.3 fl (80.0-94.0); MEAN CORPUSCULAR HGB 30.5 pg (27.0-31.0); MEAN CORPUSCULAR HGB CONC 35.4 g/dl (33.0-37.0); MEAN PLATELET VOLUME 10.1 fl (9.6-12.3); MONO # 0.6 10*3/uL (0.1-1.0); MONO % 6.8 % (3.0-9.0); NEUT # 5.3 10*3/uL (2.3-7.9); NEUT % 62.6 % (47.0-73.0); RED BLOOD COUNT 4.52 10*6/uL (4.50-5.90); RED CELL DISTRI WIDTH 13.1 % (0-14.5); WHITE BLOOD COUNT 8.5 10*3/uL (4.8-10.8)
[2020-09-29 11:20] LABS: PLATELET COUNT AUTOMATED 181 10*3/uL (130-400)
[2020-09-29 11:29] LABS: ALBUMIN 3.7 gm/dl (3.1-4.5); ALKALINE PHOSPHATASE 293 U/L (45-117); BUN 11 mg/dl (7-24); CHLORIDE 97 mmol/L (98-107); CREATININE 0.91 mg/dL (0.70-1.30); POTASSIUM 3.7 mmol/L (3.5-5.1); SGOT/AST 39 IU/L (3-35); SGPT/ALT 83 U/L (12-78); SODIUM 128 mmol/L (136-145); TOTAL PROTEIN 7.7 gm/dL (6.4-8.2)
[2020-09-29 11:52] LABS: BILIRUBIN Negative (Negative); BLOOD Negative (Negative); CLARITY Clear (Clear); COLOR Yellow (Yellow); GLUCOSE 3+ (Negative); KETONE Negative (Negative); LEUKO ESTERASE Negative (Negative); NITRITE Negative (Negative); PH 5.5 (4.5-8.0); SPECIFIC GRAVITY >= 1.030 (1.001-1.030); UROBILINOGEN 0.2 E.U./dl (0.0-1.0)
[2020-09-29 18:32] VITALS: BP 115/72
[2020-09-29 20:47] VITALS: BP 120/74
[2020-09-30] VITALS (7 sets, daily range): BP systolic 93–132; BP diastolic 49–78
[2020-09-30 06:06] LABS: BUN 10 mg/dl (7-24); CHLORIDE 107 mmol/L (98-107); CREATININE 0.58 mg/dL (0.70-1.30); POTASSIUM 3.5 mmol/L (3.5-5.1); SODIUM 134 mmol/L (136-145)
[2020-09-30 06:37] LABS: BASO % 0.4 % (0.0-1.0); EOS # 0.1 10*3/uL (0.0-0.4); EOS % 1.6 % (1.0-4.0); HEMATOCRIT 38.3 % (42.0-52.0); LYMPH # 2.1 10*3/uL (1.3-4.4); LYMPH % 31.3 % (27.0-41.0); MEAN CELL VOLUME 88.2 fl (80.0-94.0); MEAN CORPUSCULAR HGB 30.2 pg (27.0-31.0); MEAN CORPUSCULAR HGB CONC 34.2 g/dl (33.0-37.0); MEAN PLATELET VOLUME 10.5 fl (9.6-12.3); MONO # 0.4 10*3/uL (0.1-1.0); MONO % 5.1 % (3.0-9.0); NEUT # 4.1 10*3/uL (2.3-7.9); RED BLOOD COUNT 4.34 10*6/uL (4.50-5.90); RED CELL DISTRI WIDTH 13.2 % (0-14.5); WHITE BLOOD COUNT 6.8 10*3/uL (4.8-10.8)
[2020-09-30 06:50] LABS: PLATELET COUNT AUTOMATED 118 10*3/uL (130-400)
[2020-09-30] MEDS ORDERED: VENLAFAXINE HYD75 MG PO (11:43)
[2020-09-30] MEDS ORDERED: LEVEMIR FL100 UNIT/1 SC (11:45)
[2020-10-01] VITALS: BP 119/71
[2020-10-01 06:27] LABS: BUN 14 mg/dl (7-24); CHLORIDE 108 mmol/L (98-107); CREATININE 0.54 mg/dL (0.70-1.30); POTASSIUM 3.6 mmol/L (3.5-5.1); SODIUM 138 mmol/L (136-145)
[2020-10-01 08:00] VITALS: BP 130/79
[2020-10-01 12:00] VITALS: BP 103/60
[2020-10-01] MEDS ORDERED: GLIMEPIRIDE4 M1 PO (14:10)
== END 2020-10-01 16:00 | disposition home or self-care (01) | DRG 638 ==
LOC: ED 10:09 → 4E 13:22 → EDHOLD 13:22 → 4E 09-30 12:48
PROVIDERS: Student in an Organized Health Care Education/Training Program; ADMIT Internal Medicine; ATTEND Internal Medicine
DX: E11.65 Type 2 diabetes mellitus with hyperglycemia (principal); I48.21 Permanent atrial fibrillation; E87.1 Hypo-osmolality and hyponatremia; F33.1 Major depressive disorder, recurrent, moderate; E86.0 Dehydration; N40.1 Benign prostatic hyperplasia with lower urinary tract symptoms; R33.8 Other retention of urine; I10 Essential (primary) hypertension; F51.01 Primary insomnia; F41.1 Generalized anxiety disorder; J44.9 Chronic obstructive pulmonary disease, unspecified; Z96.652 Presence of left artificial knee joint; Z79.01 Long term (current) use of anticoagulants; Z86.16 Personal history of COVID-19; Z88.0 Allergy status to penicillin; Z91.041 Radiographic dye allergy status; Z90.49 Acquired absence of other specified parts of digestive tract; Z87.891 Personal history of nicotine dependence; Z80.42 Family history of malignant neoplasm of prostate; Z83.3 Family history of diabetes mellitus; Z82.3 Family history of stroke; Z91.11 Patient's noncompliance with dietary regimen

== ENCOUNTER → 2021-02-14 | Outpatient (CLI) | payer MEDICARE ==
[~2021-02-14] MED LIST changes: +GLIMEPIRIDE4 M1 PO; +LEVEMIR FL100 UNIT/1 SC
[2021-02-14 13:31] LABS: ALBUMIN 3.9 gm/dl (3.1-4.5); ALKALINE PHOSPHATASE 160 U/L (45-117); BUN 12 mg/dl (7-24); CHLORIDE 105 mmol/L (98-107); CREATININE 0.84 mg/dL (0.70-1.30); POTASSIUM 4.1 mmol/L (3.5-5.1); SGOT/AST 17 IU/L (3-35); SGPT/ALT 28 U/L (12-78); SODIUM 137 mmol/L (136-145); TOTAL PROTEIN 7.9 gm/dL (6.4-8.2)
== END | disposition home or self-care (01) ==
LOC: LAB 12:46
PROVIDERS: ATTEND Orthopaedic Surgery
DX: M25.559 Pain in unspecified hip (principal); M25.569 Pain in unspecified knee; Z79.1 Long term (current) use of non-steroidal anti-inflammatories (NSAID)

== ENCOUNTER → 2021-05-13 | Outpatient (CLI) | payer OTHER, MEDICAID | END | disposition home or self-care (01) | LOC: US 08:59 | PROVIDERS: ATTEND Internal Medicine | DX: N50.3 Cyst of epididymis (principal); N43.2 Other hydrocele; N50.819 Testicular pain, unspecified ==

== ENCOUNTER → 2021-07-08 | Outpatient (CLI) | payer OTHER, MEDICAID ==
[2021-07-08 13:13] LABS: BASO % 0.6 % (0.0-1.0); EOS # 0.1 10*3/uL (0.0-0.4); EOS % 1.3 % (1.0-4.0); HEMATOCRIT 44.8 % (42.0-52.0); LYMPH # 1.3 10*3/uL (1.3-4.4); LYMPH % 18.8 % (27.0-41.0); MEAN CELL VOLUME 89.4 fl (80.0-94.0); MEAN CORPUSCULAR HGB 30.9 pg (27.0-31.0); MEAN CORPUSCULAR HGB CONC 34.6 g/dl (33.0-37.0); MEAN PLATELET VOLUME 9.3 fl (9.6-12.3); MONO # 0.5 10*3/uL (0.1-1.0); MONO % 7.5 % (3.0-9.0); NEUT # 4.9 10*3/uL (2.3-7.9); NEUT % 71.5 % (47.0-73.0); PLATELET COUNT AUTOMATED 158 10*3/uL (130-400); RED BLOOD COUNT 5.01 10*6/uL (4.50-5.90); RED CELL DISTRI WIDTH 12.8 % (0-14.5); WHITE BLOOD COUNT 6.8 10*3/uL (4.8-10.8)
[2021-07-08 13:31] LABS: ALKALINE PHOSPHATASE 96 U/L (45-117); BUN 12 mg/dl (7-24); CHLORIDE 109 mmol/L (98-107); CHOLESTEROL 164 mg/dL (<200); CREATININE 0.83 mg/dL (0.70-1.30); FREE T4 1.11 ng/dl (0.76-1.46); LDL CHOLESTEROL 79 mg/dL (9-159); POTASSIUM 3.7 mmol/L (3.5-5.1); SGOT/AST 16 IU/L (3-35); SGPT/ALT 22 U/L (12-78); SODIUM 139 mmol/L (136-145); TRIGLYCERIDES 91 mg/dl (<150)
[2021-07-08 13:37] LABS: T3 UPTAKE 35 % (31-39); TOTAL PROTEIN 7.4 gm/dL (6.4-8.2)
[2021-07-08 14:26] LABS: VITAMIN D, 25-HYDROXY 20.2 ng/mL (30-100)
== END | disposition home or self-care (01) ==
LOC: LAB 12:44
PROVIDERS: ATTEND Internal Medicine
DX: E78.2 Mixed hyperlipidemia (principal); M62.81 Muscle weakness (generalized); E03.9 Hypothyroidism, unspecified; E11.65 Type 2 diabetes mellitus with hyperglycemia; I10 Essential (primary) hypertension; E55.9 Vitamin D deficiency, unspecified; M06.4 Inflammatory polyarthropathy

== ENCOUNTER → 2021-07-31 | Outpatient (CLI) | payer OTHER, MEDICAID | END | disposition home or self-care (01) | LOC: LAB 09:59 | PROVIDERS: ATTEND Nurse Practitioner Family | DX: K52.9 Noninfective gastroenteritis and colitis, unspecified (principal) ==

== ENCOUNTER → 2021-11-14 | Outpatient (CLI) | payer OTHER | END | disposition home or self-care (01) | LOC: LAB 13:21 | PROVIDERS: ATTEND Psychiatry & Neurology Neurology | DX: K62.9 Disease of anus and rectum, unspecified (principal); R44.9 Unspecified symptoms and signs involving general sensations and perceptions; Z91.89 Other specified personal risk factors, not elsewhere classified; R53.1 Weakness ==

== ENCOUNTER → 2022-04-07 | Outpatient (CLI) | payer OTHER | END | disposition home or self-care (01) | LOC: MRI 00:37 | PROVIDERS: ATTEND Specialist | DX: I67.9 Cerebrovascular disease, unspecified (principal); H90.5 Unspecified sensorineural hearing loss ==

== ENCOUNTER → 2023-05-13 | Outpatient (CLI) | payer OTHER, MEDICAID ==
[2023-05-13 16:33] LABS: BASO % 0.8 % (0.0-1.0); EOS # 0.1 10*3/uL (0.0-0.4); EOS % 1.4 % (1.0-4.0); LYMPH # 1.6 10*3/uL (1.3-4.4); LYMPH % 32.2 % (27.0-41.0); MEAN CELL VOLUME 90.6 fl (80.0-94.0); MEAN CORPUSCULAR HGB 30.3 pg (27.0-31.0); MEAN CORPUSCULAR HGB CONC 33.4 g/dl (33.0-37.0); MEAN PLATELET VOLUME 9.1 fl (9.6-12.3); MONO # 0.4 10*3/uL (0.1-1.0); MONO % 7.4 % (3.0-9.0); NEUT # 2.9 10*3/uL (2.3-7.9); NEUT % 57.4 % (47.0-73.0); PLATELET COUNT AUTOMATED 148 10*3/uL (130-400); RED BLOOD COUNT 5.19 10*6/uL (4.50-5.90)
[2023-05-13 17:14] LABS: ALKALINE PHOSPHATASE 102 U/L (46-116); BUN 6 mg/dl (9-23); CHLORIDE 106 mmol/L (98-107); CHOLESTEROL 207 mg/dL (<200); CPK 61 U/L (34-171); FREE T4 1.19 ng/dl (0.89-1.76); LDL CHOLESTEROL 120 mg/dL (9-159); SGPT/ALT 13 U/L (5-49); TOTAL PROTEIN 7.6 gm/dL (6.0-8.0); TRIGLYCERIDES 141 mg/dl (<150)
[2023-05-13 17:37] LABS: VITAMIN D, 25-HYDROXY 33.4 ng/mL (30-100)
== END | disposition home or self-care (01) ==
LOC: LAB 16:07
PROVIDERS: ATTEND Internal Medicine
DX: Z12.5 Encounter for screening for malignant neoplasm of prostate (principal); Z13.0 Encounter for screening for diseases of the blood and blood-forming organs and certain disorders involving the immune mechanism; Z13.1 Encounter for screening for diabetes mellitus; Z13.21 Encounter for screening for nutritional disorder; Z13.220 Encounter for screening for lipoid disorders; Z13.228 Encounter for screening for other metabolic disorders; E55.9 Vitamin D deficiency, unspecified; Z13.29 Encounter for screening for other suspected endocrine disorder; Z13.6 Encounter for screening for cardiovascular disorders; Z13.89 Encounter for screening for other disorder; Z13.9 Encounter for screening, unspecified; E78.2 Mixed hyperlipidemia; E11.65 Type 2 diabetes mellitus with hyperglycemia; E03.9 Hypothyroidism, unspecified

== ENCOUNTER → 2023-11-11 | Outpatient (CLI) | payer OTHER ==
[2023-11-11 16:07] LABS: BILIRUBIN Negative (Negative); BLOOD Trace-Intact (Negative); CLARITY Clear (Clear); COLOR Dark Yellow (Yellow); GLUCOSE 3+ (Negative); KETONE 1+ (Negative); LEUKO ESTERASE Negative (Negative); NITRITE Negative (Negative); PH 5.5 (4.5-8.0); SPECIFIC GRAVITY >= 1.030 (1.001-1.030)
[2023-11-11 16:08] LABS: BASO % 0.7 % (0.0-1.0); EOS % 0.5 % (1.0-4.0); HEMATOCRIT 46.8 % (42.0-52.0); LYMPH # 1.3 10*3/uL (1.3-4.4); LYMPH % 22.4 % (27.0-41.0); MEAN CELL VOLUME 89.8 fl (80.0-94.0); MEAN CORPUSCULAR HGB 30.3 pg (27.0-31.0); MEAN CORPUSCULAR HGB CONC 33.8 g/dl (33.0-37.0); MEAN PLATELET VOLUME 9.5 fl (9.6-12.3); MONO # 0.4 10*3/uL (0.1-1.0); MONO % 6.8 % (3.0-9.0); NEUT % 69.3 % (47.0-73.0); PLATELET COUNT AUTOMATED 193 10*3/uL (130-400); RED BLOOD COUNT 5.21 10*6/uL (4.50-5.90); RED CELL DISTRI WIDTH 12.7 % (0-14.5); WHITE BLOOD COUNT 5.7 10*3/uL (4.8-10.8)
[2023-11-11 16:33] LABS: BACTERIA TRACE; MUCOUS 2+
[2023-11-11 16:45] LABS: VITAMIN D, 25-HYDROXY 50.7 ng/mL (30-100)
[2023-11-11 16:46] LABS: ALKALINE PHOSPHATASE 109 U/L (46-116); BUN < 5 mg/dl (9-23); CHLORIDE 106 mmol/L (98-107); CHOLESTEROL 182 mg/dL (<200); FREE T4 1.16 ng/dl (0.89-1.76); LDL CHOLESTEROL 92 mg/dL (9-159); POTASSIUM 4.4 mmol/L (3.4-5.1); SGPT/ALT 9 U/L (5-49); TOTAL PROTEIN 7.7 gm/dL (6.0-8.0); TRIGLYCERIDES 177 mg/dl (<150)
== END | disposition home or self-care (01) ==
LOC: LAB 11-09 00:16
PROVIDERS: ATTEND Internal Medicine
DX: Z12.5 Encounter for screening for malignant neoplasm of prostate (principal); I10 Essential (primary) hypertension; E11.65 Type 2 diabetes mellitus with hyperglycemia; E78.2 Mixed hyperlipidemia; E03.9 Hypothyroidism, unspecified; E55.9 Vitamin D deficiency, unspecified; N39.0 Urinary tract infection, site not specified; D51.9 Vitamin B12 deficiency anemia, unspecified